=== PATIENT | female | born 1950 | race Caucasian/White ===

== ENCOUNTER 2023-02-09 09:58 | Outpatient (OUT) | payer MEDICARE, OTHER, SELFPAY ==
--- NOTE | 2023-02-09 10:11 | MM_ITS ---
Patient: VERONICA COBB Exam Date: 02/09/2023 : 1950 Gender:F Ordering : DR MIRELLA YOUNGER M.D. Admission #: [id number] Family : Order #: [id number] CLICK HERE TO VIEW EXAM RADIOLOGY REPORT PROCEDURE: MM TOMOSYNTHESIS SCREENING BI COMPARISON: MG MAMM SCREEN 3D DARRYL CAD, 02/07/2022. MG MAMM SCREEN 3D DARRYL CAD, 02/04/2021. MG MAMM SCREEN DARRYL W CAD, 02/02/2020. MG MAMM DARRYL SCRN W CAD DIG, 04/20/2014. INDICATIONS: Z12.31 Calculator Name NCI Breast Cancer Risk Assessment Tool 5 Year Breast Cancer Risk 1.40% Lifetime Breast Cancer Risk 3.10% Personal Breast Cancer No Personal Ovarian Cancer No Treatments None Family Cancers Sister with uterine cancer at age 28. LOCATION: [facility] BREAST COMPOSITION: Heterogeneously dense,which may obscure small masses. FINDINGS: DIAGNOSTIC CATEGORY 1--NEGATIVE. RIGHT BREAST: No significant suspicious finding. No significant change has occurred. LEFT BREAST: No significant suspicious finding. No significant change has occurred. RECOMMENDATIONS: ROUTINE MAMMOGRAM AND CLINICAL EVALUATION IN 12 MONTHS. PLEASE NOTE: A NORMAL MAMMOGRAM DOES NOT EXCLUDE THE POSSIBILITY OF BREAST CANCER. A CLINICALLY SUSPICIOUS PALPABLE LUMP SHOULD BE BIOPSIED. Dictated by: Jerry Bustamante M.D. on 02/09/2023 at 14:40 Approved by: Jerry Bustamante M.D. on 02/09/2023 at 14:43
== END 2023-02-09 09:59 | disposition home or self-care (01) ==
LOC: MAMMO 10:05
PROVIDERS: PCP Family Medicine; Visit Provider Family Medicine
DX: Z12.31 Encounter for screening mammogram for malignant neoplasm of breast (principal); Z80.8 Family history of malignant neoplasm of other organs or systems
CPT/HCPCS: 77063; 77067

== ENCOUNTER 2024-02-12 10:16 | Outpatient (OUT) | payer MEDICARE, OTHER, SELFPAY ==
--- NOTE | 2024-02-12 10:24 | MM_ITS ---
Patient Name: VERONICA COBB MR#: [id number] : 1950 Exam Date: 02/12/2024 Ordering Doctor: DR MIRELLA YOUNGER M.D. RADIOLOGY REPORT PROCEDURE: MM TOMOSYNTHESIS SCREENING BI COMPARISON: MM TOMOSYNTHESIS SCREENING BI, 02/09/2023. MG MAMM SCREEN 3D DARRYL CAD, 02/07/2022. MG MAMM SCREEN 3D DARRYL CAD, 02/04/2021. MG MAMM DARRYL SCRN W CAD DIG, 04/20/2014. INDICATIONS: Screening Calculator Name NCI Breast Cancer Risk Assessment Tool 5 Year Breast Cancer Risk 1.40% Lifetime Breast Cancer Risk 2.90% Personal Breast Cancer No Personal Ovarian Cancer No Treatments None Family Cancers Sister with uterine cancer at age 28. LOCATION: [facility] BREAST COMPOSITION: The breasts are heterogeneously dense,which may obscure small masses. FINDINGS: DIAGNOSTIC CATEGORY 1--NEGATIVE. RIGHT BREAST: No significant suspicious finding. No significant change has occurred. LEFT BREAST: No significant suspicious finding. No significant change has occurred. RECOMMENDATIONS: ROUTINE MAMMOGRAM AND CLINICAL EVALUATION IN 12 MONTHS. PLEASE NOTE: A NORMAL MAMMOGRAM DOES NOT EXCLUDE THE POSSIBILITY OF BREAST CANCER. A CLINICALLY SUSPICIOUS PALPABLE LUMP SHOULD BE BIOPSIED. Dictated by: Jerry Bustamante M.D. on 02/12/2024 at 16:06 Approved by: Jerry Bustamante M.D. on 02/12/2024 at 16:08
== END 2024-02-12 10:17 | disposition home or self-care (01) ==
LOC: MAMMO 10:16
PROVIDERS: PCP Family Medicine; Visit Provider Family Medicine
DX: Z12.31 Encounter for screening mammogram for malignant neoplasm of breast (principal); Z80.8 Family history of malignant neoplasm of other organs or systems
CPT/HCPCS: 77063; 77067

== ENCOUNTER 2024-04-06 12:42 | Outpatient (OUT) | payer MEDICARE, OTHER, SELFPAY ==
--- OUTSIDE RECORDS SUMMARY | 2024-04-06 12:52 | XMS_ITS | CCD ---
Author Organization [facility] Care Team Providers Care Exhauster Name Role Phone TYRA, DR AIDAN Hoyos Admitting Unavailabl e GRILLIS, DR AIDAN Hoyos Attending Unavailabl e AREN, DR VU Primary Care Unavailable GRILLIVivina, DR AIDAN Hoyos Consulting Unavailabl e GRILLIS, DR AIDNA Hoyos Admitting Unavailabl e GRILLIS, DR AIDAN Hoyos Attending Unavailabl e AREN, DR VU Primary Care Unavailable GRILLIS, DR AIDAN Hoyos Consulting Unavailabl e MORGOVivian, KARAN Consulting Unavailable NED CAMPA Consulting Unavailable AREN, DR VU Admitting Unavailable AREN, DR VU Attending Unavailable AREN, DR VU Primary Care Unavailable AREN, DR VU Consulting Unavailable WEST, DR MARCELLA Lino Consulting Unavailable AREN, DR VU Primary Care Unavailable NADERER, DR CORRY Delvalle Admitting Unavailable NADERER, DR CORRY Delvalle Attending Unavailable WEST, DR MARCELLA Lino Consulting Unavailable NADERER, DR CORRY Delvalle Consulting Unavailable HAY, DR MONROE Consulting Unavailable Luba Younger MD Unavailable Luba Younger MD Primary Care Provider RASHI LEE Attending Unavailable NELSY ESPITIA Attending Unavailable ARENLUBA Delvalle Attending Unavailable Allergies Allergy Classification Reported Allergen(s) Allergy Type Date of Onset Reaction(s) Facility (1 source) Penicillin Drug Allergy [facility] Repository (2 sources) Penicillin G Drug Allergy 11-22-2022 Unknown [facility] Healthcare (2 sources) Penicillin G sodium Allergy to substance 11-22-2022 Unknown [facility] Healthcare Medications Current Medications Medication Drug Class(es) Dates Sig (Normalized) Sig (Original) cetirizine hydrochloride 10 mg oral tablet (2 sources) Histamine-1 Receptor Antagonist Start: 03-09-2024 take 1 tablet by mouth once daily cetirizine (ZyrTEC) 10 MG tablet Indications: Seasonal allergic rhinitis, unspecified trigger Take 1 tablet (10 mg) by mouth Daily 100 tablet 03/09/2024 Active Start: 02-22-2024 take 1 tablet by zulay th at bedtime cetirizine (ZyrTEC ALLERGY) 10 MG tablet Indications: Seasonal allergic rhinitis, unspecified trigger Take 1 tablet (10 mg) by mouth at bedtime 30 tablet 02/22/2024 Active losartan potassium 50 mg oral tablet (2 sources) Angiotensin 2 Receptor Mike Start: 03-09-2024 take 1 tablet by mouth once daily losartan (Cozaar) 50 MG tablet Indications: Essential hypertension (CMS/HCC) Take 1 tablet (50 mg) by mouth Daily 100 tablet 03/09/2024 Active Start: 02-22-2024 take 1 tablet by zulay th once daily losartan (Cozaar) 50 MG tablet Indications: Essential hypertension (CMS/HCC) Take 1 tablet (50 mg) by mouth Daily 30 tablet 02/22/2024 Active metoprolol tartrate 25 mg oral tablet (3 sources) beta-Adrenergic Mike Start: 03-09-2024 metopr olol tartrate (Lopressor) 25 MG tablet Indications: Essential hypertension (CMS/HCC) TAKE ONE-HALF (1/2) TABLET TWICE A DAY WITH FOOD 90 tablet 3 03/09/2024 Active Start: 03-09-2024 End: 03-09-2024 take 1 tablet by mouth once daily metoprolol tartrate (Lopressor) 25 MG tablet Indications: Essential hypertension (CMS/HCC) Take 1 tablet (25 mg) by mouth Daily 100 tablet 03/09/2024 03/09/2024 Discontinued Start: 02-22-2024 metoprolol tar trate (Lopressor) 25 MG tablet Indications: Essential hypertension (CMS/HCC) TAKE ONE-HALF (1/2) TABLET TWICE A DAY WITH FOOD 30 tablet 02/22/2024 Active Problems Active Problems Problem Classification Problem Date Documented Da te Episodic/Chronic Cardiac dysrhythmias (4 sources) Irregular heart beat; Translations: [Cardiac arrhythmia, unspecified] Onset: 11-22-2022 11-22-2022 Chronic Cataract (2 sources) Cataract; Translations: [Unspecified cataract] Onset: 11-22-2022 11-22-2022 Chronic Chronic obstructive pulmonary disease and bronchiectasis (2 sources) Chronic obstructive lung disease; Translations: [Chronic obstructive pulmonary disease, unspecified] Onset: 11-22-2022 11-22-2022 Chronic Disorders of lipid metabolism (2 sources) Hyperlipidemia; Translations: [Hyperlipidemia, unspecified] Onset: 11-22-2022 11-22-2022 Chronic Diverticulosis and diverticulitis (4 sources) Diverticulosis of large intestine without perforation or abscess without bleeding; Translations: [Diverticulosis of large intestine without perforation or abscess with bleeding] Onset: 01-01-2022 11-22-2022 Chronic Essential hypertension (4 sources) Essential (primary) hypertension; Translations: [Benign essential hypertension] Onset: 01-01-2022 03-16-2023 Chronic Gastrointestinal hemorrhage (7 sources) Hemorrhage of anus and rectum; Translations: [Gastrointestinal hemorrhage, unspecified] Onset: 12-26-2021 Episodic Noninfectious gastroenteritis (1 source) Noninfective gastroenteritis and colitis, unspecified; Translations: [NONINFECTIVE GE AND COLITIS UNS] Onset: 01-01-2022 Episodic Other and unspecified benign neoplasm (1 source) Polyp of colon; Translations: [POLYP OF COLON] Onset: 02-26-2022 Episodic Other gastrointestinal disorders (1 source) Diarrhea, unspecified; Translations: [DIARRHEA UNSPECIFIED] Onset: 01-01-2022 Episodic Other nutritional; endocrine; and metabolic disorders (1 source) Obesity, unspecified; Translations: [OBESITY UNSPECIFIED] Onset: 02-26-2022 Chronic Other nutritional; endocrine; and metabolic disorders (1 source) Body mass index (BMI) 29.0-29.9, adult; Translations: [BODY MASS INDEX BMI 29.0-29.9 ADULT] Onset: 02-26-2022 Episodic Other screening for suspected conditions (not mental disorders or infectious disease) (4 sources) Encounter for screening mammogram for malignant neoplasm of breast; Translations: [ENC SCR MAMMO MALIG NEOPLASM BREAST] Onset: 02-07-2022 Episodic Other upper respiratory disease (2 sources) Seasonal allergic rhinitis; Translations: [Other seasonal allergic rhinitis] Onset: 11-22-2022 11-22-2022 Chronic Residual codes; unclassified (1 source) Family history of malignant neoplasm of other genital organs; Translations: [FAM HX MALIG NEOPLSM OTH GENIT ORGN] Onset: 02-11-2022 Episodic Screening and history of mental health and substance abuse codes (1 source) Personal history of nicotine dependence; Translations: [PERSONAL HISTORY OF NICOTINE DEPEND] Onset: 02-26-2022 Episodic Unclassified (1 source) CONTACT W/AND (SUSP) EXPOS COVID-19; Translations: [CONTACT W/AND (SUSP) EXPOS COVID-19] Onset: 02-19-2022 Urinary tract infections (1 source) Urinary tract infection, site not specified; Translations: [UTI SITE NOT SPECIFIED] Onset: 01-01-2022 Episodic Past or Other Problems Problem Classification Problem Date Documented Da te Episodic/Chronic Diabetes mellitus without complication (2 sources) Impaired glucose tolerance; Translations: [Impaired glucose tolerance (oral)] Onset: 11-22-2022 11-22-2022 Episodic Other bone disease and musculoskeletal deformities (2 sources) Osteopenia; Translations: [Other specified disorders of bone density and structure, unspecified site] Onset: 11-22-2022 11-22-2022 Episodic Other connective tissue disease (2 sources) Muscle pain; Translations: [Myalgia, unspecified site] Onset: 11-16-2023 11-16-2023 Episodic Other skin disorders (2 sources) Disorder of skin of upper limb; Translations: [Disorder of the skin and subcutaneous tissue, unspecified] Onset: 01-05-2023 01-05-2023 Episodic Other upper respiratory infections (2 sources) Upper respiratory infection; Translations: [Acute upper respiratory infection, unspecified] Onset: 02-23-2023 02-23-2023 Episodic Results Test Name Value Interpretation Reference Range Facility ALBUMIN, RANDOM URINE W/BRIANNA Song 03-30-2024 ALBUMIN, URINE <0.2 Normal See Note: [facility] Comment on above: Result Comment: Refe rence Range: Reference Range Not established Performed By: #### 6 399, 35722, 1517, 3840 #### [facility] [address], [address] [place] [address] Leasing Manager: Wilfrido Gibson MD ALBUMIN/CREATININE RATIO, RANDOM URINE NOTE Normal <30 [facility] Comment on above: Result Comment: NOTE : The urine albumin value is less than 0.2 mg/dL therefore we are unable to calculate excretion and/or creatinine ratio. The ADA defines abnormalities in albumin excretion as follows: Albuminuria Category Result (mg/g creatinine) Normal to Mildly increased <30 Moderately increased 30-299 Severely increased > OR = 300 The ADA recommends that at least two of three specimens collected within a 3-6 month period be abnormal before considering a patient to be within a diagnostic category. Performed By: #### 6 399, 13722, 65, 7600 #### [facility] [place] [address] Leasing Manager: Wilfrido Gibson MD Creatinine (U) [Mass/Vol] 10 mg/dL Low 20-275 [facility] Comment on above: Performed By: #### 6 399, 34254, 65, 7600 #### [facility] [place] [address] Leasing Manager: Wilfrido Gibson MD CBC (INCLUDES DIFF/PLT)on Basophils (Bld) [#/Vol] 0.047 10*3/uL Normal 0-200 [facility] Comment on above: Performed By: #### 6 399, 26117, 65, 7600 #### [facility] [place] [address] Leasing Manager: Wilfrido Gibson MD Basophils/100 WBC (Bld) 0.5 % Normal [facility] Comment on above: Performed By: #### 6 399, 32297, 65, 7600 #### [facility] [place] [address] Leasing Manager: Wilfrido Gibson MD Eosinophils (Bld) [#/Vol] 0.075 10*3/uL Normal 15-500 [facility] Comment on above: Performed By: #### 6 399, 06072, 6517, 7600 #### [facility] [place] [address] Leasing Manager: Wilfrido Gibson MD Eosinophils/100 WBC (Bld) 0.8 % Normal [facility] Comment on above: Performed By: #### 6 399, 16234, 65, 7600 #### [facility] of [place] [address] Leasing Manager: Wilfrido Gibson MD Erythrocyte distribution width (RBC) [Ratio] 11.7 % Normal 11.0-15.0 [facility] Comment on above: Performed By: #### 6 399, 46348, 6517, 7600 #### [facility] of [place] [address] Leasing Manager: Wilfrido Gibson MD Hematocrit (Bld) [Volume fraction] 44.4 % Normal 35.0-45.0 [facility] Comment on above: Performed By: #### 6 399, 79925, 6517, 7600 #### [facility] of [place] [address] Leasing Manager: Wilfrido Gibson MD Hemoglobin (Bld) [Mass/Vol] 15.1 g/dL Normal 11.7-15.5 [facility] Comment on above: Performed By: #### 6 399, 55120, 65, 7600 #### [facility] of [place] [address] Leasing Manager: Wilfrido Gibson MD Lymphocytes (Bld) [#/Vol] 3.187 10*3/uL Normal 850-3900 [facility] Comment on above: Performed By: #### 6 399, 35060, 6517, 7600 #### [facility] of [place] [address] Leasing Manager: Wilfrido Gibson MD Lymphocytes/100 WBC (Bld) 33.9 % Normal [facility] Comment on above: Performed By: #### 6 399, 77088, 6517, 7600 #### [facility] of [place] [address] Leasing Manager: Wilfrido Gibson MD MCH (RBC) [Entitic mass] 31.5 pg Normal 27.0-33.0 [facility] Comment on above: Performed By: #### 6 399, 47467, 6517, 7600 #### [facility] of [address], [address] [place] [address] Leasing Manager: Wilfrido Gibson MD MCHC (RBC) [Mass/Vol] 34.0 g/dL Normal 32.0-36.0 [facility] Comment on above: Result Comment: For adults, a slight decrease in the calculated MCHC value (in the range of 30 to 32 g/dL) is most likely not clinically significant; however, it should be interpreted with caution in correlation with other red cell parameters and the patient's clinical condition. Performed By: #### 6 399, , 65, 7600 #### [facility] [place] [address] Leasing Manager: Wilfrido Gibson MD MCV (RBC) [Entitic vol] 92.5 fL Normal 80.0-100.0 [facility] Comment on above: Performed By: #### 6 399, , 6516, 7600 #### [facility] [place] [address] Leasing Manager: Wilfrido Gibson MD Monocytes (Bld) [#/Vol] 0.592 10*3/uL Normal 200-950 [facility] Comment on above: Performed By: #### 6 399, , 65, 7600 #### [facility] of [place] [address] Leasing Manager: Wilfrido Gibson MD Monocytes/100 WBC (Bld) 6.3 % Normal [facility] Comment on above: Performed By: #### 6 399, , 65, 7600 #### [facility] of [place] [address] Leasing Manager: Wilfrido Gibson MD Neutrophils (Bld) [#/Vol] 5.499 10*3/uL Normal 5756-0698 [facility] Comment on above: Performed By: #### 6 399, , 65, 7600 #### [facility] [place] [address] Leasing Manager: Wilfrido Gibson MD Neutrophils/100 WBC (Bld) 58.5 % Normal [facility] Comment on above: Performed By: #### 6 399, 69163, 6517, 7600 #### [facility] of [place] [address] Leasing Manager: Wilfrido Gibson MD Platelet mean volume (Bld) [Entitic vol] 9.9 fL Normal 7.5-12.5 [facility] Comment on above: Performed By: #### 6 399, 53350, 6517, 7600 #### [facility] of [address], [address] [place] [address] Leasing Manager: Wilfrido Gibson MD Platelets (Bld) [#/Vol] 256 10*3/uL Normal 140-400 [facility] Comment on above: Performed By: #### 6 399, 03622, 6517, 7600 #### [facility] of [place] [address] Leasing Manager: Wilfrido Gibson MD RBC (Bld) [#/Vol] 4.80 10*6/uL Normal 3.80-5.10 [facility] Comment on above: Performed By: #### 6 399, 47223, 6517, 7600 #### [facility] of [place] [address] Leasing Manager: Wilfrido Gibson MD WBC (Bld) [#/Vol] 9.4 10*3/uL Normal 3.8-10.8 [facility] Comment on above: Performed By: #### 6 399, 21754, 6517, 7600 #### [facility] of [place] [address] Leasing Manager: Wilfrido Gibson MD [facility] 03-30-2024 Albumin [Mass/Vol] 4.4 g/dL Normal 3.6-5.1 [facility] Comment on above: Performed By: #### 6 399, 75469, 6517, 7600 #### [facility] of [place] [address] Leasing Manager: Wilfrido Gibson MD Albumin/Globulin [Mass ratio] 1.8 {ratio} Normal 1.0-2.5 [facility] Comment on above: Performed By: #### 6 399, 15739, 65, 7600 #### [facility] of [address], [address] [place] [address] Leasing Manager: Wilfrido Gibson MD ALP [Catalytic activity/Vol] 59 U/L Normal 37-153 [facility] Comment on above: Performed By: #### 6 399, 34451, 65, 7600 #### [facility] of [address], [address] [place] [address] Leasing Manager: Wilfrido Gibson MD ALT [Catalytic activity/Vol] 20 U/L Normal 6-29 [facility] Comment on above: Performed By: #### 6 399, 16063, 65, 7600 #### [facility] of [address], [address] [place] [address] Leasing Manager: Wilfrido Gibson MD AST [Catalytic activity/Vol] 32 U/L Normal 10-35 [facility] Comment on above: Performed By: #### 6 399, 15420, 65, 7600 #### [facility] of [place] [address] Leasing Manager: Wilfrido Gibson MD Bilirubin [Mass/Vol] 0.7 mg/dL Normal 0.2-1.2 [facility] Comment on above: Performed By: #### 6 399, 79758, 65, 7600 #### [facility] of [place] [address] Leasing Manager: Wilfrido Gibson MD BUN/CREATININE RATIO SEE NOTE: Normal 6-22 [facility] Comment on above: Result Comment: Not Reported: BUN and Creatinine are within reference range. Performed By: #### 6 399, 25532, 6517, 7600 #### [facility] of [address], [address] [place] [address] Leasing Manager: Wilfrido Gibson MD Calcium [Mass/Vol] 9.3 mg/dL Normal 8.6-10.4 [facility] Comment on above: Performed By: #### 6 399, 76903, 6517, 7600 #### [facility] of [place] [address] Leasing Manager: Wilfrido Gibson MD Chloride [Moles/Vol] 100 mmol/L Normal 98-110 [facility] Comment on above: Performed By: #### 6 399, 59450, 65, 7600 #### [facility] of [address], [address] [place] [address] Leasing Manager: Wilfrido Gibson MD CO2 [Moles/Vol] 26 mmol/L Normal 20-32 [facility] Comment on above: Performed By: #### 6 399, 27192, 65, 7600 #### [facility] of [address], [address] [place] [address] Leasing Manager: Wilfrido Gibson MD Creatinine [Mass/Vol] 0.76 mg/dL Normal 0.60-1.00 [facility] Comment on above: Performed By: #### 6 399, 47308, 65, 7600 #### [facility] of [place] [address] Leasing Manager: Wilfrido Gibson MD GFR/1.73 sq M.predicted among non-blacks MDRD (S/P/Bld) [Vol rate/Area] 81 mL/min/{1.73_m2} Normal > OR = 60 [facility] Comment on above: Performed By: #### 6 399, 40229, 65, 7600 #### [facility] of [address], [address] [place] [address] Leasing Manager: Wilfrido Gibson MD Globulin (S) [Mass/Vol] 2.5 g/dL Normal 1.9-3.7 [facility] Comment on above: Performed By: #### 6 399, 44245, 65, 7600 #### [facility] of [place] [address] Leasing Manager: Wilfrido Gibson MD Glucose [Mass/Vol] 114 mg/dL High 65-99 [facility] Comment on above: Result Comment: Fasting reference interval For someone without known diabetes, a glucose value between 100 and 125 mg/dL is consistent with prediabetes and should be confirmed with a follow-up test. Performed By: #### 6 399, 96571, 6517, 7600 #### [facility] [address], [address] [place] [address] Leasing Manager: Wilfrido Gibson MD Potassium [Moles/Vol] 5.0 mmol/L Normal 3.5-5.3 [facility] Comment on above: Performed By: #### 6 399, 86281, 6517, 7600 #### [facility] [place] [address] Leasing Manager: Wilfrido Gbison MD Protein [Mass/Vol] 6.9 g/dL Normal 6.1-8.1 [facility] Comment on above: Performed By: #### 6 399, 21734, 6517, 7600 #### [facility] [place] [address] Leasing Manager: Wilfrido Gibson MD Sodium [Moles/Vol] 135 mmol/L Normal 135-146 [facility] Comment on above: Performed By: #### 6 399, 01401, 6517, 7600 #### [facility] [place] [address] Leasing Manager: Wilfrido Gibson MD Urea nitrogen [Mass/Vol] 12 mg/dL Normal 7-25 [facility] Comment on above: Performed By: #### 6 399, 48139, 6517, 7600 #### [facility] of [place] [address] Leasing Manager: Wilfrido Gibson MD LIPID PANEL, [facility] 03-18 Cholesterol [Mass/Vol] 254 mg/dL High <200 [facility] Comment on above: Order Comment: DIFFI CULT DRAW- 03/29/1924 Performed By: #### 6 399, 81511, 6517, 7600 #### [facility] [address], [address] [place] [address] Leasing Manager: Wilfrido Gibson MD Cholesterol in HDL [Mass/Vol] 53 mg/dL Normal > OR = 50 [facility] Comment on above: Order Comment: DIFFI CULT DRAW- 03/29/1924 Performed By: #### 6 399, 53736, 6517, 7600 #### [facility] [address], [address] [place] [address] Leasing Manager: Wilfrido Gibson MD Cholesterol in LDL [Mass/Vol] 164 mg/dL High [facility] Comment on above: Order Comment: DIFFI CULT DRAW- 03/29/1924 Result Comment: Refe rence range: <100 Desirable range <100 mg/dL for primary prevention; <70 mg/dL for patients with CHD or diabetic patients with > or = 2 CHD risk factors. LDL-C is now calculated using the Denise calculation, which is a validated novel method providing better accuracy than the Friedewald equation in the estimation of LDL-C. Dexter MOORE et al. DONNIE. 2013;310(19): 7389-6549 (http://education.GeoG[employer].Karma Gaming/faq/AVQ355) Performed By: #### 6 399, 85937, 0917, 7600 #### [facility] [address], [address] [place] [address] Leasing Manager: Wilfrido Gibson MD Cholesterol.total/C holesterol in HDL [Mass ratio] 4.8 {ratio} Normal <5.0 [facility] Comment on above: Order Comment: DIFFI CULT DRAW- 03/29/1924 Performed By: #### 6 399, 58407, 6517, 7600 #### [facility] [address], [address] [place] [address] Leasing Manager: Wilfrido Gibson MD NON HDL CHOLESTEROL 201 mg/dL (calc) High <130 [facility] Comment on above: Order Comment: DIFFI CULT DRAW- 03/29/1924 Result Comment: For patients with diabetes plus 1 major ASCVD risk factor, treating to a non-HDL-C goal of <100 mg/dL (LDL-C of <70 mg/dL) is considered a therapeutic option. Performed By: #### 6 399, 52756, 6517, 7600 #### [facility] [address], [address] [place], [place] [id number] Leasing Manager: Wilfrido Gibson MD Triglyceride [Mass/Vol] 210 mg/dL High <150 [facility] Comment on above: Order Comment: DIFFI CULT DRAW- 03/29/1924 Result Comment: If a non-fasting specimen was collected, consider repeat triglyceride testing on a fasting specimen if clinically indicated. Monet et al. J. of Clin. Lipidol. 2015;9:129-169. Performed By: #### 6 399, 19071, 9117, 7430 #### [facility] [address], [address] [place] [address] Leasing Manager: Wilfrido Gibson MD Covid-19 PCR (CVDTB)on SARS-CoV-2 (COVID-19) RNA NORMA+probe Ql (Unsp spec) Not detected Normal NOT DETECTED [facility] Comment on above: Result Comment: This test is not yet approved or cleared by the [place] FDA. When there are no FDA-approved or cleared tests available, and other criteria are met, FDA can make tests available under an emergency access mechanism called an Emergency Use Authorization (EUA). The EUA for this test is supported by the [place] of Health and Human Service's (HHS's) declaration that circumstances exist to justify the emergency use of in vitro diagnostics for the detection and/or diagnosis of the virus that causes COVID-19. This EUA will remain in effect (meaning this test can be used) for the duration of the COVID-19 declaration justifying emergency of IVDs, unless it is terminated or revoked by FDA (after which the test may no longer be used). When diagnostic testing is negative, the possibility of a false negative should be considered in the context of a patient's recent exposures and the presence of clinical signs and symptoms consistent with SARS-CoV-2. Performed By: #### C VDTB #### [facility] [address] [place] [address] Dr. Norma Foss MG MAMM SCREEN 3D DARRYL CADon 02-07-2022 MG MAMM SCREEN 3D DARRYL CAD Patient: VERONICA SALINAS Exam Date: 02/07/2022 : 1950 Gender:F Ordering : DR LUBA YOUNGER M.D. Admission #: [id number] Family : Order #: [id number] CLICK HERE TO VIEW EXAM RADIOLOGY REPORT PROCEDURE: MAMMOGRAM SCREENING 3D BILATERAL CAD COMPARISON: MG MAMM SCREEN DARRYL W CAD, 2020. MG MAMM SCREEN 3D DARRYL CAD, 02/04/2021. INDICATIONS: Screening mammography Calculator Name NCI Breast Cancer Risk Assessment Tool 5 Year Breast Cancer Risk 1.40% Lifetime Breast Cancer Risk 3.30% Personal Breast Cancer No Personal Ovarian Cancer No Treatments None Family Cancers Sister with uterine cancer at age 28. LOCATION: [facility] BREAST COMPOSITION: Heterogeneously dense,which may obscure small masses. FINDINGS: DIAGNOSTIC CATEGORY 1--NEGATIVE. NO CHANGE FROM COMPARISON ASSESSMENT. Scattered benign-appearing calcifications are present. Scattered benign-appearing lymph nodes are present. RIGHT BREAST: No significant suspicious finding. LEFT BREAST: No significant suspicious finding. RECOMMENDATIONS: ROUTINE MAMMOGRAM AND CLINICAL EVALUATION IN 12 MONTHS. PLEASE NOTE: A NORMAL MAMMOGRAM DOES NOT EXCLUDE THE POSSIBILITY OF BREAST CANCER. A CLINICALLY SUSPICIOUS PALPABLE LUMP SHOULD BE BIOPSIED. Dictated by: Marcella Stone MD on 02/07/2022 at 13:12 Approved by: Marcella Stone MD on 02/07/2022 at 13:13 Normal [facility] Physician Referralon 022 Physician Referral [id number]. [id number]:127 Normal [facility] ANTIBODY ID PANELon 01-01-20 22 ANTIBODY ID PANEL Antibody ID Negative Blood Bank Notes No antibodies found at [facility] Normal [facility] Comment on above: Performed By: #### P TT, PT #### [facility] [address] [place] [address] Dr. Norma Foss CBC AUTO DIFFon 12-27-2021 BASO # 0.0 103/ul Normal 0.0-0.1 [facility] Comment on above: Performed By: #### C BC #### [facility] [address] [place] [address] Dr. Norma Foss Basophils/100 WBC (Bld) 0.4 % Normal 0.2-2.0 [facility] Comment on above: Performed By: #### C BC #### [facility] [address] [place] [address] Dr. Norma Foss EO # 0.1 103/ul Normal 0.0-0.7 [facility] Comment on above: Performed By: #### C BC #### [facility] [address] [place] [address] Dr. Norma Foss Eosinophils/100 WBC (Bld) 1.1 % Normal 0.9-7.0 [facility] Comment on above: Performed By: #### C BC #### [facility] [address] [place] [address] Dr. Norma Foss Erythrocyte distribution width (RBC) [Ratio] 12.5 % Normal 11.0-15.0 [facility] Comment on above: Performed By: #### C BC #### [facility] [address] [place] [address] Dr. Norma Foss Hematocrit (Bld) [Volume fraction] 36.2 % Normal 36.0-48.0 [facility] Comment on above: Performed By: #### C BC #### [facility] [address] [place] [address] Dr. Norma Foss Hemoglobin (Bld) [Mass/Vol] 11.4 g/dL Critically low 12.0-16.0 [facility] Comment on above: Performed By: #### C BC #### [facility] [address] [place] [address] Dr. Norma Foss IG # 0.02 10e3/ul Normal 0.00-0.03 [facility] Comment on above: Performed By: #### C BC #### [facility] [address] [place] [address] Dr. Norma Foss IG % 0.2 % Normal 0.0-0.5 [facility] Comment on above: Performed By: #### C BC #### [facility] [address] [place] [address] Dr. Norma Foss LYMPH # 3.3 103/ul Normal 1.2-3.8 [facility] Comment on above: Performed By: #### C BC #### [facility] [address] [place] [address] Dr. Norma Foss Lymphocytes/100 WBC (Bld) 30.3 % Normal 20.5-60.0 [facility] Comment on above: Performed By: #### C BC #### [facility] [address] [place] [address] Dr. Norma Foss MANUAL DIFF REQ NO Normal [facility] Comment on above: Performed By: #### C BC #### [facility] [address] [place] [address] Dr. Norma Foss MCH (RBC) [Entitic mass] 30.8 pg Normal 26.7-34.0 [facility] Comment on above: Performed By: #### C BC #### [facility] [address] [place] [address] Dr. Norma Foss MCHC (RBC) [Mass/Vol] 31.5 g/dL Normal 29.9-35.2 [facility] Comment on above: Performed By: #### C BC #### [facility] [address] [place] [address] Dr. Norma Foss MCV (RBC) [Entitic vol] 97.8 fL Normal 81.0-99.0 [facility] Comment on above: Performed By: #### C BC #### [facility] [address] [place] [address] Dr. Norma Foss MONO # 0.7 103/ul Normal 0.3-0.8 [facility] Comment on above: Performed By: #### C BC #### [facility] [address] [place] [address] Dr. Norma Foss Monocytes/100 WBC (Bld) 6.6 % Normal 1.7-12.0 [facility] Comment on above: Performed By: #### C BC #### [facility] [address] [place] [address] Dr. Norma Foss NEUT # 6.7 103/ul Critically high 1.4-6.5 [facility] Comment on above: Performed By: #### C BC #### [facility] [address] [place] [address] Dr. Norma Foss Neutrophils/100 WBC (Bld) 61.4 % Normal 43.0-75.0 [facility] Comment on above: Performed By: #### C BC #### [facility] [address] [place] [address] Dr. Norma Foss Platelet mean volume (Bld) [Entitic vol] 9.4 fL Critically low 9.5-13.5 [facility] Comment on above: Performed By: #### C BC #### [facility] [address] [place] [address] Dr. Norma Foss PLT 223 103/ul Normal 150-450 [facility] Comment on above: Performed By: #### C BC #### [facility] [address] [place] [address] Dr. Norma Foss RBC 3.70 106/ul Critically low 4.20-5.40 [facility] Comment on above: Performed By: #### C BC #### [facility] [address] [place] [address] Dr. Norma Foss WBC 10.9 103/ul Normal 4.0-11.0 [facility] Comment on above: Performed By: #### C BC #### [facility] [address] [place] [address] Dr. Norma Foss PROF 14(COMP METB)on 022 Albumin [Mass/Vol] 2.9 g/dL Critically low 3.4-5.0 [facility] Comment on above: Performed By: #### C MP #### [facility] [address] [place] [address] Dr. Norma Foss Albumin/Globulin [Mass ratio] 1.1 {ratio} Normal [facility] Comment on above: Performed By: #### C MP #### [facility] [address] [place] [address] Dr. Norma Foss ALP [Catalytic activity/Vol] 63 U/L Normal 46-116 [facility] Comment on above: Performed By: #### C MP #### [facility] [address] [place] [address] Dr. Norma Foss ALT [Catalytic activity/Vol] 17 U/L Normal 14-59 [facility] Comment on above: Performed By: #### C MP #### [facility] [address] [place] [address] Dr. Norma Foss Anion gap [Moles/Vol] 10.9 mmol/L Normal [facility] Comment on above: Performed By: #### C MP #### [facility] [address] [place] [address] Dr. Norma Foss AST [Catalytic activity/Vol] 17 U/L Normal 15-37 [facility] Comment on above: Performed By: #### C MP #### [facility] [address] [place] [address] Dr. Norma Foss Bilirubin [Mass/Vol] 0.3 mg/dL Normal 0.2-1.0 [facility] Comment on above: Performed By: #### C MP #### [facility] [address] [place] [address] Dr. Norma Foss Calcium [Mass/Vol] 8.4 mg/dL Critically low 8.5-10.1 [facility] Comment on above: Performed By: #### C MP #### [facility] [address] [place] [address] Dr. Norma Foss Chloride [Moles/Vol] 107 mmol/L Normal 98-107 [facility] Comment on above: Performed By: #### C MP #### [facility] [address] [place] [address] Dr. Norma Foss CO2 [Moles/Vol] 25.1 mmol/L Normal 21.0-32.0 [facility] Comment on above: Performed By: #### C MP #### [facility] [address] [place] [address] Dr. Norma Foss Creatinine [Mass/Vol] 0.85 mg/dL Normal 0.55-1.02 [facility] Comment on above: Performed By: #### C MP #### [facility] [address] [place] [address] [address] Norma Foss EGFR-AF [place] >60 Normal >=60 [facility] Comment on above: Performed By: #### C MP #### [facility] [address] [address] [address] Norma Foss EGFR-NON AF [place] >60 Normal >=60 [facility] Comment on above: Performed By: #### C MP #### [facility] [address] [address] [address] Norma Foss Globulin (S) [Mass/Vol] 2.7 g/dL Normal [facility] Comment on above: Performed By: #### C MP #### [facility] [address] [address] [address] Norma Foss Glucose [Mass/Vol] 138 mg/dL Critically high 74-106 [facility] Comment on above: Performed By: #### C MP #### [facility] [address] [address] [address] Norma Foss Potassium [Moles/Vol] 4.0 mmol/L Normal 3.5-5.1 [facility] Comment on above: Performed By: #### C MP #### [facility] [address] [address] [address] Norma Foss Protein [Mass/Vol] 5.6 g/dL Critically low 6.4-8.2 [facility] Comment on above: Performed By: #### C MP #### [facility] [address] [address] [address] Norma Foss Sodium [Moles/Vol] 139 mmol/L Normal 136-145 [facility] Comment on above: Performed By: #### C MP #### [facility] [address] [address] [address] Norma Foss Urea nitrogen [Mass/Vol] 8.0 mg/dL Normal 7.0-18.0 [facility] Comment on above: Performed By: #### C MP #### [facility] [address] [place] [address] Dr. Norma Foss Urea nitrogen/Creatinine [Mass ratio] 9.4 mg/mg Normal [facility] Comment on above: Performed By: #### C MP #### [facility] [address] [place] [address] Dr. Norma Foss CBC AUTO DIFFon 12-26-2021 BASO # 0.1 103/ul Normal 0.0-0.1 [facility] Comment on above: Performed By: #### P TT, PT #### [facility] [address] [place] [address] Dr. Norma Foss Basophils/100 WBC (Bld) 0.4 % Normal 0.2-2.0 [facility] Comment on above: Performed By: #### P TT, PT #### [facility] [address] [place] [address] Dr. Norma Foss EO # 0.0 103/ul Normal 0.0-0.7 [facility] Comment on above: Performed By: #### P TT, PT #### [facility] [address] [place] [address] Dr. Norma Foss Eosinophils/100 WBC (Bld) 0.2 % Critically low 0.9-7.0 [facility] Comment on above: Performed By: #### P TT, PT #### [facility] [address] [place] [address] Dr. Norma Foss Erythrocyte distribution width (RBC) [Ratio] 12.2 % Normal 11.0-15.0 [facility] Comment on above: Performed By: #### P TT, PT #### [facility] [address] [place] [address] Dr. Norma Foss Hematocrit (Bld) [Volume fraction] 41.5 % Normal 36.0-48.0 [facility] Comment on above: Performed By: #### P TT, PT #### [facility] [address] [place] [address] Dr. Norma Foss Hemoglobin (Bld) [Mass/Vol] 13.8 g/dL Normal 12.0-16.0 [facility] Comment on above: Performed By: #### P TT, PT #### [facility] [address] [address] [address] Norma Foss IG # 0.03 10e3/ul Normal 0.00-0.03 [facility] Comment on above: Performed By: #### P TT, PT #### [facility] [address] [address] [address] Norma Foss IG % 0.2 % Normal 0.0-0.5 [facility] Comment on above: Performed By: #### P TT, PT #### [facility] [address] [place] [address] Dr. Norma Foss LYMPH # 2.3 103/ul Normal 1.2-3.8 [facility] Comment on above: Performed By: #### P TT, PT #### [facility] [address] [place] [address] Dr. Norma Foss Lymphocytes/100 WBC (Bld) 17.4 % Critically low 20.5-60.0 [facility] Comment on above: Performed By: #### P TT, PT #### [facility] [address] [place] [address] Dr. Norma Foss MANUAL DIFF REQ NO Normal [facility] Comment on above: Performed By: #### P TT, PT #### [facility] [address] [address] [address] Norma Foss MCH (RBC) [Entitic mass] 30.6 pg Normal 26.7-34.0 [facility] Comment on above: Performed By: #### P TT, PT #### [facility] [address] [place] [address] Dr. Norma Foss MCHC (RBC) [Mass/Vol] 33.3 g/dL Normal 29.9-35.2 [facility] Comment on above: Performed By: #### P TT, PT #### [facility] [address] [place] [address] Dr. Norma Foss MCV (RBC) [Entitic vol] 92.0 fL Normal 81.0-99.0 [facility] Comment on above: Performed By: #### P TT, PT #### [facility] [address] [place] [address] Dr. Norma Foss MONO # 0.6 103/ul Normal 0.3-0.8 [facility] Comment on above: Performed By: #### P TT, PT #### [facility] [address] [place] [address] Dr. Norma Foss Monocytes/100 WBC (Bld) 4.8 % Normal 1.7-12.0 [facility] Comment on above: Performed By: #### P TT, PT #### [facility] [address] [place] [address] Dr. Norma Foss NEUT # 10.0 103/ul Critically high 1.4-6.5 [facility] Comment on above: Performed By: #### P TT, PT #### [facility] [address] [place] [address] Dr. Norma Foss Neutrophils/100 WBC (Bld) 77.0 % Critically high 43.0-75.0 [facility] Comment on above: Performed By: #### P TT, PT #### [facility] [address] [place] [address] Dr. Norma Foss Platelet mean volume (Bld) [Entitic vol] 9.3 fL Critically low 9.5-13.5 [facility] Comment on above: Performed By: #### P TT, PT #### [facility] [address] [place] [address] Dr. Norma Foss PLT 262 103/ul Normal 150-450 [facility] Comment on above: Performed By: #### P TT, PT #### [facility] [address] [place] [address] Dr. Norma Foss RBC 4.51 106/ul Normal 4.20-5.40 [facility] Comment on above: Performed By: #### P TT, PT #### [facility] [address] [place] [address] Dr. Norma Foss WBC 13.0 103/ul Critically high 4.0-11.0 [facility] Comment on above: Performed By: #### P TT, PT #### [facility] [address] [place], [place] [address] ABD/PELVIS WO CONon 12-26 CT ABD/PELVIS WO CON EXAMINATION: CT ABD/PELVIS WO CON, 12/26/2021 9:08 AM EDT HISTORY: Acute lower gastrointestinal hemorrhage , vomiting, diarrhea COMPARISON: None. TECHNIQUE: CT scan of the abdomen and pelvis was performed without IV contrast. CT dose reduction technique was used, including Automated Exposure Control. FINDINGS: LUNG BASES: Moderate peribronchial thickening. Mild to moderate emphysema. LIVER: No enlargement, atrophy, abnormal density, or significant focal lesion. BILIARY: No dilatation or calcification. PANCREAS: No lesion, fluid collection, ductal dilatation, or atrophy. SPLEEN: No enlargement or focal lesion. ADRENALS: No mass or enlargement. KIDNEYS: No mass, obstruction, or calcification. BOWEL/MESENTERY: Colonic diverticulosis. Wall thickening of the sigmoid colon possibly related to diverticular disease with no focal mass observed. Nonobstructive bowel gas pattern. No aortic aneurysm. Moderate diffuse atherosclerosis AORTA/VASCULAR: No aneurysm or dissection. RETROPERITONEUM: No mass or adenopathy. LYMPH NODES: No adenopathy. URINARY BLADDER: No visible focal wall thickening, lesion, or calculus. PELVIC ORGANS: No visible mass. Pelvic organs appropriate for patient age. ABDOMINAL WALL: No mass or hernia. 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 IMPRESSION: Moderate colonic diverticulosis without evidence of acute diverticulitis. Wall thickening of the mid sigmoid colon possibly inflammatory in nature, consider nonemergent direct visualization Electronically authenticated by: MARCELLA STONE Date: 2021-12-26 10:09 Normal [facility] CULTURE URINEon 12-26-2021 CULTURE URINE Culture Observations : LIGHT GROWTH OF MIXED GENITAL VALERY. NO POTENTIAL PATHOGENS SEEN. Normal [facility] Comment on above: Performed By: #### P TT, PT #### [facility] [address] [place], [place] [address] Dr. Norma Foss [facility]16 SARS-CoV-2 (COVID-19) RNA NORMA+probe Ql (Unsp spec) Not detected Normal NOT DETECTED [facility] Comment on above: Result Comment: When diagnostic testing is negative, the possibility of a false negative should be considered in the context of a patient's recent exposures and the presence of clinical signs and symptoms consistent with SARS-CoV-2. This test is not yet approved or cleared by the [place] FDA. When there are no FDA-approved or cleared tests available, and other criteria are met, FDA can make tests available under an emergency access mechanism called an Emergency Use Authorization (EUA). The EUA for this test is supported by the [place] of Health and Human Service's declaration that circumstances exist to justify the emergency use of in vitro diagnostics for the detection and/or diagnosis of the virus that causes COVID-19. This EUA will remain in effect for the duration of the COVID-19 declaration justifying emergency of IVDs, unless it is terminated or revoked by the FDA (after which the test may no longer be used). Performed By: #### P TT, PT #### [facility] [address] [place] [address] Dr. Norma Foss DIRECT COOMBSon 12-26-2021 DIRECT SHRAVAN Negative Normal The [facility] Comment on above: Performed By: #### P TT, PT #### [facility] [address] [place] [address] Dr. Norma Foss ER URINE PROFILEon 2 Bilirubin Ql (U) Negative Normal NEGATIVE [facility] Comment on above: Performed By: #### U MICRO, ERUR #### [facility] [address] [place] [address] Dr. Norma Foss Clarity (U) CLEAR Normal CLEAR [facility] Comment on above: Performed By: #### U MICRO, ERUR #### [facility] [address] [place] [address] Dr. Norma Foss Color (U) LT. YELLOW Normal YELLOW [facility] Comment on above: Performed By: #### U MICRO, ERUR #### [facility] [address] [place] [address] Dr. Norma Foss ERUAHD A micrscopic examination will be performed if indicated. Normal [facility] Comment on above: Performed By: #### U MICRO, ERUR #### [facility] [address] [address] [address] Norma Foss Glucose Ql (U) Negative Normal NEGATIVE [facility] Comment on above: Performed By: #### U MICRO, ERUR #### [facility] [address] [address] [address] Norma Foss Hemoglobin Ql (U) SMALL Abnormal NEGATIVE [facility] Comment on above: Performed By: #### U MICRO, ERUR #### [facility] [address] [address] [address] Norma Foss Ketones Ql (U) Negative Normal NEGATIVE [facility] Comment on above: Performed By: #### U MICRO, ERUR #### [facility] [address] [place] [address] Dr. Norma Foss LEUKOCYTES TRACE Abnormal NEGATIVE [facility] Comment on above: Performed By: #### U MICRO, ERUR #### [facility] [address] [address] [address] Norma Foss Nitrite Ql (U) Negative Normal NEGATIVE [facility] Comment on above: Performed By: #### U MICRO, ERUR #### [facility] [address] [address] [address] Norma Foss pH (U) 5.5 [pH] Normal 5-9 [facility] Comment on above: Performed By: #### U MICRO, ERUR #### [facility] [address] [address] [address] Norma Foss SPEC GRAVITY 1.025 Normal 1.005-<=1.025 The [facility] Comment on above: Performed By: #### U MICRO, ERUR #### [facility] [address] [address] [address] Norma Foss UA PROTEIN TRACE Normal NEGATIVE/ TRACE [facility] Comment on above: Performed By: #### U MICRO, ERUR #### [facility] [address] [address] [address] Norma Foss UR MICRO IND INDICATED Normal [facility] Comment on above: Performed By: #### U MICRO, ERUR #### [facility] [address] [place] [address] Dr. Norma Foss Urobilinogen Qn (U) 0.2 {Ivette'U}/dL Normal 0.2 - 1. 0 [facility] Comment on above: Performed By: #### U MICRO, ERUR #### [facility] [address] [place] [address] Dr. Norma Foss GI PANEL (PCR)on 12-26-2021 Adenovirus F 40/41 Not detected Normal NOT DETECTED [facility] Comment on above: Performed By: #### G IPANEL #### [facility] [address] [place] [address] Dr. Norma Foss Astrovirus Not detected Normal NOT DETECTED [facility] Comment on above: Performed By: #### G IPANEL #### [facility] [address] [place] [address] Dr. Norma Foss C. Diff toxin A/B Not detected Normal NOT DETECTED [facility] Comment on above: Performed By: #### G IPANEL #### [facility] [address] [place] [address] Dr. Norma Foss Campylobacter Not detected Normal NOT DETECTED [facility] Comment on above: Performed By: #### G IPANEL #### [facility] [address] [place] [address] Dr. Norma Foss Cryptosporidium Not detected Normal NOT DETECTED [facility] Comment on above: Performed By: #### G IPANEL #### [facility] [address] [place] [address] Dr. Norma Foss Cyclos. Cayetanensis Not detected Normal NOT DETECTED [facility] Comment on above: Performed By: #### G IPANEL #### [facility] [address] [place] [address] Dr. Norma Foss E. Coli O157 Not Applicable Normal Not Applicable [facility] Comment on above: Performed By: #### G IPANEL #### [facility] [address] [place] [address] Dr. Norma Foss E. histolytica Not detected Normal NOT DETECTED [facility] Comment on above: Performed By: #### G IPANEL #### [facility] [address] [address] [address] Norma Foss EAEC Not detected Normal NOT DETECTED [facility] Comment on above: Performed By: #### G IPANEL #### [facility] [address] [place] [address] Dr. Norma Foss EIEC Not detected Normal NOT DETECTED [facility] Comment on above: Performed By: #### G IPANEL #### [facility] [address] [address] [address] Norma Foss EPEC Not detected Normal NOT DETECTED [facility] Comment on above: Performed By: #### G IPANEL #### [facility] [address] [place] [address] Dr. Norma Foss ETEC Not detected Normal NOT DETECTED [facility] Comment on above: Performed By: #### G IPANEL #### [facility] [address] [place] [address] Dr. Norma Barajas Lamblia Not detected Normal NOT DETECTED [facility] Comment on above: Performed By: #### G IPANEL #### [facility] [address] [place] [address] Dr. Norma BRISCOE CONTROLS PASSED Normal [facility] Comment on above: Performed By: #### G IPANEL #### [facility] [address] [place] [address] Dr. Norma CRESPO [facility] HEADER GI PANEL BACTERIA Normal T [facility] Comment on above: Performed By: #### G IPANEL #### [facility] [address] [place] [address] Dr. Norma FREITAS ECOLI GI PANEL DIARRHEAGENIC E.COLI / SHIGELLA Normal [facility] Comment on above: Performed By: #### G IPANEL #### [facility] [address] [place] [address] Dr. Norma FREITAS INFO SEE BELOW Normal [facility] Comment on above: Result Comment: EAEC - Enteroaggregative E. Coli EPEC- Enteropathogenic E. Coli ETEC- Enterotoxigenic E. Coli lt/st STEC- Shigella-like toxin-producing E. Coli stx1/stx2 EIEC- Shigella/Enteroinvasive E. Coli Performed By: #### G IPANEL #### [facility] [address] [place] [address] Dr. Norma FREITAS PARASITES GI PANEL PARASITES Normal [facility] Comment on above: Performed By: #### G IPANEL #### [facility] [address] [place] [address] Dr. Norma FREITAS VIRUS GI PANEL VIRUSES Normal The [facility] Comment on above: Performed By: #### G IPANEL #### [facility] [address] [place] [address] Dr. Norma Foss Norovirus GI/GII Not detected Normal NOT DETECTED [facility] Comment on above: Performed By: #### G IPANEL #### [facility] [address] [place] [address] Dr. Norma Foss P. Shigelloides Not detected Normal NOT DETECTED [facility] Comment on above: Performed By: #### G IPANEL #### [facility] [address] [place] [address] Dr. Norma Foss Rotavirus A Not detected Normal NOT DETECTED The [facility] Comment on above: Performed By: #### G IPANEL #### [facility] [address] [place] [address] Dr. Norma Foss Salmonella Not detected Normal NOT DETECTED [facility] Comment on above: Performed By: #### G IPANEL #### [facility] [address] [place] [address] Dr. Norma Foss Sapovirus Not detected Normal NOT DETECTED [facility] Comment on above: Performed By: #### G IPANEL #### [facility] [address] [place] [address] Dr. Norma Foss STEC Not detected Normal NOT DETECTED [facility] Comment on above: Performed By: #### G IPANEL #### [facility] [address] [place] [address] Dr. Norma Foss Vibrio Not detected Normal NOT DETECTED [facility] Comment on above: Performed By: #### G IPANEL #### [facility] [address] [place] [address] Dr. Norma Foss Vibrio Cholera Not detected Normal NOT DETECTED The [facility] Comment on above: Performed By: #### G IPANEL #### [facility] [address] [place] [address] Dr. Norma Foss Y. Enterocolitica Not detected Normal NOT DETECTED [facility] Comment on above: Performed By: #### G IPANEL #### [facility] [address] [place] [address] Dr. Norma Foss HEMOGLOBIN AND HEMATOCRITon 12-26-2021 Hematocrit (Bld) [Volume fraction] 38.1 % Normal 36.0-48.0 [facility] Comment on above: Performed By: #### H GBHCT #### [facility] [address] [place] [address] Dr. Norma Foss Hemoglobin (Bld) [Mass/Vol] 12.4 g/dL Normal 12.0-16.0 [facility] Comment on above: Performed By: #### H GBHCT #### [facility] [address] [place] [address] Dr. Norma Foss PROF 14(COMP METB)on 022 Albumin [Mass/Vol] 4.0 g/dL Normal 3.4-5.0 [facility] Comment on above: Performed By: #### H LINDAPN, CMP #### [facility] [address] [place] [address] Dr. Norma Foss Albumin/Globulin [Mass ratio] 1.1 {ratio} Normal [facility] Comment on above: Performed By: #### H STROPN, CMP #### [facility] [address] [place] [address] Dr. Norma Foss ALP [Catalytic activity/Vol] 81 U/L Normal 46-116 [facility] Comment on above: Performed By: #### H LINDAPN, CMP #### [facility] [address] [address] [address] Norma Foss ALT [Catalytic activity/Vol] 20 U/L Normal 14-59 [facility] Comment on above: Performed By: #### H LINDAPN, CMP #### [facility] [address] [place] [address] Dr. Norma Foss Anion gap [Moles/Vol] 12.5 mmol/L Normal [facility] Comment on above: Performed By: #### H STROPN, CMP #### [facility] [address] [place] [address] Dr. Norma Foss AST [Catalytic activity/Vol] 16 U/L Normal 15-37 [facility] Comment on above: Performed By: #### H LINDAPN, CMP #### [facility] [address] [place] [address] Dr. Norma Foss Bilirubin [Mass/Vol] 0.4 mg/dL Normal 0.2-1.0 [facility] Comment on above: Performed By: #### H MIHIR, CMP #### [facility] [address] [place] [address] Dr. Norma Foss Calcium [Mass/Vol] 9.3 mg/dL Normal 8.5-10.1 [facility] Comment on above: Performed By: #### H MIHIR, CMP #### [facility] [address] [place] [address] Dr. Norma Foss Chloride [Moles/Vol] 98 mmol/L Normal 98-107 [facility] Comment on above: Performed By: #### H STROPN, CMP #### [facility] [address] [place] [address] Dr. Norma Foss CO2 [Moles/Vol] 27.4 mmol/L Normal 21.0-32.0 [facility] Comment on above: Performed By: #### H STROPN, CMP #### [facility] [address] [place] [address] Dr. Norma Foss Creatinine [Mass/Vol] 0.84 mg/dL Normal 0.55-1.02 [facility] Comment on above: Performed By: #### H STROPN, CMP #### [facility] [address] [address] [address] Norma Foss EGFR-AF [place] >60 Normal >=60 [facility] Comment on above: Performed By: #### H STROPN, CMP #### [facility] [address] [address] [address] Norma Foss EGFR-NON AF [place] >60 Normal >=60 [facility] Comment on above: Performed By: #### H STROPN, CMP #### [facility] [address] [address] [address] Norma Foss Globulin (S) [Mass/Vol] 3.4 g/dL Normal [facility] Comment on above: Performed By: #### H STROPN, CMP #### [facility] [address] [address] [address] Norma Foss Glucose [Mass/Vol] 190 mg/dL Critically high 74-106 [facility] Comment on above: Performed By: #### H STROPN, CMP #### [facility] [address] [address] [address] Norma Foss Potassium [Moles/Vol] 4.2 mmol/L Normal 3.5-5.1 [facility] Comment on above: Performed By: #### H STROPN, CMP #### [facility] [address] [address] [address] Norma Foss Protein [Mass/Vol] 7.4 g/dL Normal 6.4-8.2 [facility] Comment on above: Performed By: #### H STROPN, CMP #### [facility] [address] [address] [address] Norma Foss Sodium [Moles/Vol] 134 mmol/L Critically low 136-145 [facility] Comment on above: Performed By: #### H STROPN, CMP #### [facility] [address] [address] [address] Norma Foss Urea nitrogen [Mass/Vol] 13.0 mg/dL Normal 7.0-18.0 [facility] Comment on above: Performed By: #### H STROPN, CMP #### [facility] [address] [place] [address] Dr. Norma Foss Urea nitrogen/Creatinine [Mass ratio] 15.4 mg/mg Normal [facility] Comment on above: Performed By: #### H LINDAPN, CMP #### [facility] [address] [place] [address] Dr. Norma Foss PROTIMEon 12-26-2021 INR Coag (PPP) [Relative time] 0.99 {INR} Normal [facility] Comment on above: Performed By: #### P TT, PT #### [facility] [address] [place] [address] Dr. Norma Foss INR GUIDELINES SEE BELOW Normal [facility] Comment on above: Result Comment: PRINCESS RED INR: 2.0 - 3.0 CONDITIONS NOT LISTED BELOW 2.5 - 3.5 FOR PROSTHETIC HEART VALVE REPLACEMENT 2.5 - 3.5 RECURRENT THROMBOSIS Performed By: #### P TT, PT #### [facility] [address] [place] [address] Dr. Norma Foss PT Coag (PPP) [Time] 10.7 s Normal 9.0-11.6 [facility] Comment on above: Performed By: #### P TT, PT #### [facility] [address] [place] [address] Dr. Norma Foss PTTon 12-26-2021 aPTT Coag (Bld) [Time] 25.0 s Normal 22.3-36.2 [facility] Comment on above: Performed By: #### P TT, PT #### [facility] [address] [place] [address] Dr. Norma Foss TROPONIN, HIGH SENSITIVITYon 12-26-2021 HSTROP 5.4 pg/mL Normal 4.0-51.3 [facility] Comment on above: Result Comment: CUT- OFF POINTS HAVE BEEN ESTABLISHED BASED ON THE FOURTH UNIVERSAL DEFINITIONS OF MYOCARDIAL INFARCTION. THE UPPER REFERENCE LIMIT (URL) OF TROPONIN, DEFINED THE 99TH PERCENTILE OF cTnI DISTRIBUTION IN A REFERENCE POPULATION, HAS BEEN CONFIRMED THE DECISION THRESHOLD FOR [place] DIAGNOSIS. Performed By: #### H LINDAPN, CMP #### [facility] [address] [place] [address] Dr. Norma Foss TYPE AND SCREENon 12-26-2021 TYPE AND SCREEN Positive Normal [facility] Comment on above: Performed By: #### P TT, PT #### [facility] [address] [place] [address] Dr. Norma Foss URINE MICROSCOPIC ONLYon BACTERIA TRACE Abnormal NONE SEEN [facility] Comment on above: Performed By: #### P TT, PT #### [facility] [address] [place] [address] Dr. Norma Foss Bacteria identified Cx Nom (U) INDICATED Normal [facility] Comment on above: Performed By: #### P TT, PT #### [facility] [address] [place] [address] Dr. Norma Foss CAST SEEN Abnormal NONE SEEN [facility] Comment on above: Performed By: #### P TT, PT #### [facility] [address] [place] [address] Dr. Norma Foss Crystals LM Nom (Urine sed) NONE SEEN Normal NONE SEEN [facility] Comment on above: Performed By: #### P TT, PT #### [facility] [address] [place] [address] Dr. Norma Foss Epithelial cells LM Ql (Urine sed) MANY Abnormal NONE SEEN /RARE [facility] Comment on above: Performed By: #### P TT, PT #### [facility] [address] [place] [address] Dr. Norma Foss HYALINE CAST FEW Normal [facility] Comment on above: Performed By: #### P TT, PT #### [facility] [address] [place] [address] Dr. Norma Foss MUCOUS TRACE Abnormal NONE SEEN [facility] Comment on above: Performed By: #### P TT, PT #### [facility] [address] [place] [address] Dr. Norma Foss RBC 2-5 Abnormal 0-2 [facility] Comment on above: Performed By: #### P TT, PT #### [facility] [address] [address] [address] Norma Foss WBC 5-10 Abnormal NONE SEEN [facility] Comment on above: Performed By: #### P TT, PT #### [facility] [id number] Norma Foss Encounters Encounter Date Encounter Type Care Provider Facility Start: 03-29-2024 End: 03-29-2024 ambulatory LUBA YOUNGER Not Available Start: 03-09-2024 End: 03-09-2024 Refill Luba Younger MD Work Phone: [facility] Comment on above: Essential hypertensi on (CMS/HCC) Start: 02-23-2024 End: 02-23-2024 Telephone encounter Zamzam GARCIA Work Phone: [facility] Start: 01-11-2024 End: 01-11-2024 ambulatory NELSY ESPITIA Not Available Start: 10-22-2023 End: 10-22-2023 ambulatory RASHI LEE Not Available Start: 03-16-2023 Patient encounter procedure Zamzam GARCIA Work Phone: [facility] Start: 02-19-2022 Encounter for preprocedural laboratory examination DR AIDAN MARY [facility] Start: 02-19-2022 End: 02-19-[address] AIDAN MARY Facility:[facility] Start: 02-15-2022 End: 02-16-[address] AIDAN MARY Facility:[facility] Start: 02-15-2022 End: 02-16-2022 Encounter for preprocedural laboratory examination DR AIDAN MARY Facility:[facility] Start: 02-07-2022 End: 02-08-[address] LUBA YOUNGER Facility:[facility] Start: 12-26-2021 End: 12-27-[address] LUBA YOUNGER Facility:[facility] Plan of Treatment Date Care Activity Detail Author Start: 01-10-2025 End: 01-10-2025 Patient encounter procedure 01/10/2025 9:50 AM EDT Office Visit [facility] [address] [place] [id number] Nelsy Espitia, SHIRT OPERATOR-ASSISTANT CHILD CARE TEACHER [address] [place] [address] [facility] Start: 03-24-2024 End: 03-24-2024 Patient encounter procedure 03/24/2024 2:30 PM EST Office Visit [facility] [address] [facility] [address] [place] [id number] Luba Younger MD [address] [facility] [address] [place] [address] [facility] Start: 03-16-2024 Medicare Annual Well ness (AWV) Medicare Annual Wellness (AWV) [facility] Start: 03-16-2024 Urine screening for protein Diabetes: Urine Protein Screening [facility] Start: 01-17-2024 Influenza vaccination Influenza Vacc ine (#1) [facility] Start: 06-16-2023 Hemoglobin A1c measurement Diabetes: Hemoglobin A1C [facility] Start: 02-01-1958 Glaucoma screening Diabetes: R etinopathy Screening [facility] Immunizations Immunization Date Immunization Notes Care Provider Fa cility 11-25-2022 tetanus toxoid, redu yonathan diphtheria toxoid, and acellular pertussis vaccine, adsorbed Zamzam GARCIA Work Phone: [facility] 01-23-2021 pneumococcal conjuga te vaccine, 13 valent Zamzam GARCIA Work Phone: [facility] 12-25-2020 pneumococcal conjuga te vaccine, 13 valent Zamzam GARCIA Work Phone: [facility] 12-24-2019 pneumococcal polysaccharide vaccine, 23 valent Zamzam GARCIA Work Phone: [facility] 06-06-2015 zoster vaccine, live Zamzam GARCIA Work Phone: [facility] Payers Date Payer Category Payer [employer] others) [employer] [id number] 2022-Present [address] [place] [address] [id number] 2022 () [id number] 2022 [employer] ( [employer] others) [id number] 2013 Medicare [id number] 1959 [employer] ( and others) [id number] 1959 Medicare [id number] 1950 Unknown [id number] 1948 Unknown [id number] 1948 Unknown [id number] 1948 Unknown [id number] 1948 Unknown [id number] 1948 Unknown [id number] 1948 Unknown [id number] Social History Date Type Detail Facility Start: 03-03-2023 Tobacco smoking stat [facility] Ex-smoker [facility] History of tobacco use Current smoker [facility] History of tobacco use Cigarette Smoker [facility] Start: 03-03-2023 Tobacco use and exposure Smoke less tobacco non-user [facility] Start: 01-11-2024 Alcoholic beverage intake Curr ent drinker of alcohol (finding) [facility] Start: 03-16-2023 End: 01-11-2024 History of Social function [facility] Start: 03-16-2023 End: 01-11-2024 Tobacco use panel [facility] Start: 03-03-2023 Tobacco Comment Last smoked: 5-10 ye ars [facility] Start: 1950 Sex assigned at Not on file [facility] Telephone encounter Note 03-09-2024 Telephone Encounter - JOSE Estrada - 03/09/2024 5:21 PM EDT Note Date & Type Note Facility 03-09-2024 Telephone encount er Note Metoprolol sent. [facility] Note 03-09-2024 Telephone Encounter - JOSE Estrada - 03/09/2024 5:21 PM EDT Note Date & Type Note Facility 03-09-2024 Miscellaneous Notes Formattin g of this note might be different from the original. Metoprolol sent. documented in this encounter [facility] Telephone encounter Note 02-23-2024 Telephone Encounter - JOSE Estrada - 02/23/2024 11:31 AM EDT Note Date & Type Note Facility 02-23-2024 Telephone encounter Note Pt called to verify medications had been sent in, advised her that they were sent yesterday to [facility]. She voiced understanding. [facility] Work Phone: Note 02-23-2024 Telephone Encounter - JOSE Estrada - 02/23/2024 11:31 AM EDT Note Date & Type Note Facility 02-23-2024 Miscellaneous Notes Formattin g of this note might be different from the original. Pt called to verify medications had been sent in, advised her that they were sent yesterday to [facility]. She voiced understanding. documented in this encounter [facility] Evaluation note Note Date & Type Note Facility Evaluation note Diagnosis Routine general medical examination at health care facility- Primary Routine general medical examination at a health care facility Benign essential hypertension (CMS/HCC) Essential hypertension, benign Abnormal glucose tolerance test Impaired glucose tolerance test Medicare annual wellness visit, subsequent Hyperlipidemia, unspecified hyperlipidemia type (CMS/HCC) Acute cough Essential hypertension (CMS/HCC) Unspecified essential hypertension documented in this encounter [facility] Summary Purpose Family History No Family History Records FoundNo Family History Records FoundNo Family History Records FoundNo Family History Records Found Advance Directives No Advanced Directives Records FoundNo Advanced Directives Records FoundNo Advanced Directives Records FoundNo Advanced Directives Records Found Additional Source Comments INFORMATION SOURCE (unrecogn ized section and content) DATE CREATED AUTHOR 01/12/2022 [facility] DATE CREATED AUTHOR AUTHOR'S ORGANIZ ATION 02/26/2022 [facility] DATE CREATED AUTHOR AUTHOR'S ORGANIZ ATION 03/30/2024 [facility] EPIC DATE CREATED AUTHOR AUTHOR'S ORGANIZ ATION 04/02/2024 [facility] Care Teams (unrecognized sec tion and content) Exhauster Relationship Specialty Start Date End Date Luba Younger MD [address] [address] [place] [address] PCP - ACO Reach 10/09/22 Luba Younger MD [address] [facility] [address] [place] [address] PCP - General Family Medicine 11/24/22 Exhauster Relationship Specialty Start Date End Date Luba Younger MD [address] [address] [place] [address] PCP - ACO Reach 10/09/22 Luba Younger MD 112 [facility] [address] [place] [address] PCP - General Family Medicine 11/24/22 Reason for Visit (unrecogniz ed section and content) Reason Comments Med Refill FOR RECORDS PERTAINING TO PATIENTS WHO ARE OR HAVE BEEN ENROLLED IN A CHEMICAL DEPENDENCY/SUBSTANCEABUSE PROGRAM, SOME INFORMATION MAY BE OMITTED. This clinical summary was aggregated from multiple sources. Caution should be exercised in using it in the provision of clinical care. This summary normalizes information from multiple sources, and as a consequence, information in this document may materially change the coding, format and clinical context of patient data. In addition, data may be omitted in some cases. CLINICAL DECISIONS SHOULD BE BASED ON THE PRIMARY CLINICAL RECORDS. [facility]. provides no warranty or guarantee of the accuracy or completeness of information in this document.
--- NOTE | 2024-04-06 13:00 | CA_ITS ---
Patient Name: VERONICA COBB MR#: [id number] : 1950 Exam Date: 04/06/2024 Ordering Doctor: DR MIRELLA YOUNGER M.D. ECHOCARDIOGRAM REPORT PROCEDURE: CA ECHO DOPPLER COMPLETE INDICATIONS: Cardiac murmur, hypertension COMPARISON: None. DESCRIPTION: COMPLETE ECHOCARDIOGRAM Real-time transthoracic echocardiography with 2D, M-mode, spectral and color flow Doppler performed. QUALITY: Technical quality was good. LEFT VENTRICLE: Normal chamber size. Borderline left ventricular hypertrophy. Normal systolic function. LV EF: Normal left ventricular ejection fraction, (>55%). DIASTOLIC: Diastolic function is indeterminate. ATRIAL SEPTUM: Visually appears intact. LEFT ATRIUM: Normal chamber size. RIGHT ATRIUM: Normal chamber size. RIGHT VENTRICLE: Normal chamber size. Normal right ventricular systolic function. TRICUSPID VALVE: Normal mobility and thickness. No stenosis with trivial regurgitation. Doppler studies reveal moderately (45-60) elevated right sided pressures. RVSP 46 mmHg MITRAL VALVE: Normal mobility and thickness. No evidence of mitral valve stenosis. Mild mitral annular calcification. Trivial mitral regurgitation. AORTIC VALVE: Normal trileaflet appearance. Mildly calcified aortic valve. Normal leaflet mobility. Doppler velocity suggest no aortic valve stenosis. No aortic regurgitation. AORTIC ROOT: Normal diameter and appearance. PULMONIC VALVE: Not well visualized. No regurgitation. PERICARDIUM: No evidence of pericardial effusion. IVC: Collapses with inspirations. PLEURA: CONCLUSION: 1. Normal left ventricular size and systolic function. Estimated LVEF is 55 to 60%. 2. Normal right ventricular size and systolic function. 3. No significant valvular dysfunction. 4. Mildly calcified aortic valve without significant stenosis. 5. Moderately elevated right-sided pressures. RVSP is 46 mmHg. Adult Echocardiography Procedure Report Left Ventricle LVEDD (3.7 - 5.6 cm): 3.91 cm LVESD (2.2 - 4.0 cm): 2.61 cm LVIVS thickness (0.6 - 1.2 cm): 1.07 cm LVPW thickness (0.5 - 1.0 cm): 1.04 cm e': 0.08 m/s E - e': 10.73 LVOT Max Gradient: 3.12 mm[Hg] LVOT Area (cm2): 0.88 m/s Peak Velocity (LVOT): 0.88 m/s Mean Velocity (LVOT): 0.65 m/s LVOT Diameter 2.00 cm Left Atrium LA Volume Index (2D A2C): 25.89 ml/m2 Left Atrium Systolic Dimension: 3.14 cm Mitral Valve MV E to A Ratio: 0.98 Mitral Valve A-Wave Peak Velocity: 0.88 m/s Mitral Valve E-Wave Peak Velocity: 0.87 m/s Right Ventricle Aorta AO Root Diam: 2.92 cm Aortic Valve AoV Area (Peak Omari): 1.60 cm2, 1.60 cm2 AoV Area (VTI): 1.70 cm2, 1.70 cm2 Peak Velocity(Antegrade Flow): 1.73 m/s Peak Gradient(Antegrade Flow): 11.95 mm[Hg] Mean Velocity(Antegrade Flow): 1.17 m/s Mean Gradient(Antegrade Flow): 6.27 mm[Hg] Velocity Time Integral: 40.09 cm Tricuspid Valve Peak Velocity (Regurgitant Flow): 3.26 m/s Pulmonic Valve Mean Gradient: 2.44 mm[Hg] Mean Velocity: 0.72 m/s Peak Velocity: 1.06 m/s, 0.82 m/s Peak Gradient: 2.71 mm[Hg], 4.49 mm[Hg] Right Atrium Right Atrium Systolic Pressure: 45.60 ml, 45.60 ml Dictated by: King Vera M.D. on 04/06/2024 at 17:14 Approved by: King Vera M.D. on 04/06/2024 at 17:17
== END 2024-04-06 12:43 | disposition home or self-care (01) ==
LOC: CARD 12:42
PROVIDERS: PCP Family Medicine; Visit Provider Family Medicine
DX: R01.1 Cardiac murmur, unspecified (principal)
CPT/HCPCS: 93306

== ENCOUNTER 2025-03-03 09:54 | Outpatient (OUT) | payer MEDICARE, OTHER, SELFPAY ==
--- OUTSIDE RECORDS SUMMARY | 2025-03-03 09:58 | XMS_ITS | CCD ---
Author Organization [facility] Care Team Providers Care Cupola Tender Helper Name Role Phone TYRA, DR AIDAN Hoyos Admitting Unavailabl e GRILLIS, DR AIDAN Hoyos Attending Unavailabl e AREN, DR VU Primary Care Unavailable GRILLIVivian, DR AIDAN Hoyos Consulting Unavailabl e GRILLIS, DR AIDAN Hoyos Admitting Unavailabl e GRILLIS, [...] Unavailable NADERER, DR CORRY Delvalle Consulting Unavailable OBINNA, DR MONROE Consulting Unavailable Luba Younger MD Unavailable Luba Younger MD Primary Care Provider LUBA YOUNGER Attending Unavailable NELSY ESPITIA Attending Unavailable ARENLUBA Delvalle Attending Unavailable Allergies Allergy Classification Reported Allergen(s) Allergy Type Date of Onset Reaction(s) Facility (1 source) Penicillin Drug Allergy [facility]ository (14 sources) Penicillin G Drug Allergy 11-22-[address] [facility] (14 sources) Penicillin G sodium Allergy to substance 11-22-[address] [facility] Medications Current Medications Medication Drug Class(es) Dates Sig (Normalized) Sig (Original) cetirizine hydrochloride 10 mg oral tablet (16 sources) Histamine-1 Receptor Antagonist Start: 03-09-2024 End: 03-29-2024 take 1 tablet by mouth once daily cetirizine (ZyrTEC) 10 MG tablet Indications: Seasonal allergic rhinitis, unspecified trigger Take 1 tablet (10 mg) by mouth Daily 100 tablet 3 03/29/2024 Active Start: 02-22-2024 take 1 tablet by zulay th at bedtime cetirizine (ZyrTEC ALLERGY) 10 MG tablet Indications: Seasonal allergic rhinitis, unspecified trigger Take 1 tablet (10 mg) by mouth at bedtime 30 tablet 02/22/2024 Active take 1 tablet by zulay th at bedtime cetirizine (ZyrTEC ALLERGY) 10 MG tablet Take 10 mg by mouth at bedtime. Active empagliflozin 25 mg oral tablet (5 sources) Sodium-Glucose Cotransporter 2 Inhibitor Start: 10-17-2024 End: 11-16-2024 empagliflozin (Jardiance) 25 MG Indications: Type 2 diabetes mellitus with diabetic cataract (HCC) , Type 2 diabetes mellitus with other specified complication (HCC) Take 1 tablet (25 mg) by mouth Daily 30 tablet 10/17/2024 Active losartan potassium 50 mg oral tablet (16 sources) Angiotensin 2 Receptor Mike Start: 03-09-2024 End: 03-29-2024 take 1 tablet by mouth once daily losartan (Cozaar) 50 MG tablet Indications: Essential hypertension Take 1 tablet (50 mg) by mouth Daily 100 tablet 3 03/29/2024 Active Start: 02-22-2024 take 1 tablet by zulay th once daily losartan (Cozaar) 50 MG tablet Indications: Essential hypertension (CMS/HCC) Take 1 tablet (50 mg) by mouth Daily 30 tablet 02/22/2024 Active Start: 10-19-2023 take 1 tablet by zulay th once daily losartan (Cozaar) 50 MG tablet Indications: Essential hypertension (CMS/HCC) Take 1 tablet (50 mg) by mouth Daily 100 tablet 10/19/2023 Active metoprolol tartrate 25 mg oral tablet (15 sources) beta-Adrenergic Mike Start: 03-09-2024 metopr olol tartrate (Lopressor) 25 MG tablet Indications: Essential hypertension TAKE ONE-HALF (1/2) TABLET TWICE A DAY [...] DAY WITH FOOD 30 tablet 02/22/2024 Active Start: 10-19-2023 metoprolol tar trate (Lopressor) 25 MG tablet Indications: Essential hypertension (CMS/HCC) TAKE ONE-HALF (1/2) TABLET TWICE A DAY WITH FOOD 100 tablet 10/19/2023 Active Problems Active Problems Problem Classification Problem Date Documented Da te Episodic/Chronic Cardiac dysrhythmias (20 sources) Irregular heart beat; Translations: [Cardiac arrhythmia, unspecified] Onset: 11-22-2022 11-22-2022 Chronic Cataract (14 sources) Cataract; Translations: [Unspecified cataract] Onset: 11-22-2022 11-22-2022 Chronic Chronic obstructive pulmonary disease and bronchiectasis (18 sources) Chronic obstructive lung disease; Translations: [Chronic obstructive pulmonary disease, unspecified] Onset: 11-22-2022 11-22-2022 Chronic Diabetes mellitus with complications (14 sources) 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; Translations: [Type 2 diabetes mellitus with diabetic cataract] Onset: 10-17-2024 10-17-2024 Chronic Disorders of lipid metabolism (18 sources) Hyperlipidemia; Translations: [Hyperlipidemia, unspecified] Onset: 11-22-2022 11-22-2022 Chronic Diverticulosis and diverticulitis (16 sources) Diverticulosis of large intestine without perforation or abscess without bleeding; Translations: [Diverticulosis of large intestine without perforation or abscess with bleeding] Onset: 01-01-2022 11-22-2022 Chronic Essential hypertension (20 sources) Essential (primary) hypertension; Translations: [Benign essential [...] [POLYP OF COLON] Onset: 02-26-2022 Episodic Other and unspecified benign neoplasm (4 sources) Skin lesion; Translations: [Hemangioma of skin and subcutaneous tissue] 01-11-2024 Episodic Other and unspecified benign neoplasm (4 sources) Melanocytic nevus of right lower limb; Translations: [Melanocytic nevi of right lower limb, including hip] 01-11-2024 Episodic Other and unspecified benign neoplasm (4 sources) Melanocytic nevus of left lower limb; Translations: [Melanocytic nevi of left lower limb, including hip] 01-11-2024 Episodic Other and unspecified benign neoplasm (2 sources) Melanocytic nevus of trunk; Translations: [Melanocytic nevi of trunk] 01-10-2025 Episodic Other gastrointestinal disorders (1 source) Diarrhea, [...] MALIG NEOPLASM BREAST] Onset: 02-07-2022 Episodic Other skin disorders (4 sources) Lentiginosis; Translations: [Other melanin hyperpigmentation] 01-11-2024 Episodic Other skin disorders (4 sources) Seborrheic keratosis; Translations: [Other seborrheic keratosis] 01-11-2024 Episodic Other upper respiratory disease (16 sources) Seasonal allergic rhinitis; Translations: [Other seasonal allergic rhinitis] Onset: 11-22-2022 11-22-2022 Chronic Pulmonary heart disease (7 sources) Idiopathic pulmonary arterial hypertension ; Translations: [Primary pulmonary hypertension] Onset: 10-17-2024 10-17-2024 Chronic Residual codes; unclassified (1 source) Family [...] Da te Episodic/Chronic Diabetes mellitus without complication (20 sources) Impaired glucose tolerance; Translations: [Impaired glucose tolerance (oral)] Onset: 11-22-2022 11-22-2022 Episodic Heart valve disorders (13 sources) Heart murmur; Translations: [Cardiac murmur, unspecified] Onset: 03-29-2024 03-29-2024 Episodic Other bone disease and musculoskeletal deformities (14 sources) Osteopenia; Translations: [Other specified disorders of bone density and structure, unspecified site] Onset: 11-22-2022 11-22-2022 Episodic Other connective tissue disease (14 sources) Muscle pain; Translations: [Myalgia, unspecified site] Onset: 11-16-2023 11-16-2023 Episodic Other diseases of veins and lymphatics (2 sources) Disorder of vein of lower extremity; Translations: [Venous insufficiency (chronic) (peripheral)] 01-11-2024 Episodic Other skin disorders (14 sources) Disorder of skin of upper limb; Translations: [Disorder of the skin and subcutaneous tissue, unspecified] Onset: 01-05-2023 01-05-2023 Episodic Other upper respiratory infections (14 sources) Upper respiratory infection; Translations: [Acute upper respiratory infection, unspecified] Onset: 02-23-2023 02-23-2023 Episodic Results Test Name Value Interpretation Reference Range Facility Laboratory - Hematology and Cell countson 10-17-2024 HbA1c (Bld) [Mass fraction] 7.3 % [facility] No Panel Informationon 10-17 Interpretation and review of laboratory results Abnormal [facility] ALBUMIN, RANDOM URINE W/CREA KULWINDERon 03-30-2024 ALBUMIN, URINE <0.2 Normal See Note: [facility] Comment on above: Result Comment: Michelle deleon Range: Reference Range Not established Performed By: #### 6 399, 34972, 65, 7600 #### [facility] [address], [address] [place] [address] Traffic Maintenance Supervisor: Wilfrido Gibson MD ALBUMIN/CREATININE RATIO, RANDOM URINE [...] diagnostic category. Performed By: #### 6 399, 02216, 65, 7600 #### [facility] [address], [address] [place] [address] Traffic Maintenance Supervisor: Wilfrido Gibson MD Creatinine (U) [Mass/Vol] 10 mg/dL Low 20-275 [facility] Comment on above: Performed By: #### 6 399, , 65, 7600 #### [facility] [place] [address] Traffic Maintenance Supervisor: Wilfrido Gibson MD CBC (INCLUDES DIFF/PLT)on Basophils (Bld) [#/Vol] 0.047 10*3/uL Normal 0-200 [facility] Comment on above: Performed By: #### 6 399, 22958, 65, 7600 #### [facility] [place] [address] Traffic Maintenance Supervisor: Wilfrido Gibson MD Basophils/100 WBC (Bld) 0.5 % Normal [facility] Comment on above: Performed By: #### 6 399, 26828, 65, 7600 #### [facility] of [address], [address] [place] [address] Traffic Maintenance Supervisor: Wilfrido Gibson MD Eosinophils (Bld) [#/Vol] 0.075 10*3/uL Normal 15-500 [facility] Comment on above: Performed By: #### 6 399, 26141, 6517, 7600 #### [facility] of [address], [address] [place] [address] Traffic Maintenance Supervisor: Wilfrido Gibson MD Eosinophils/100 WBC (Bld) 0.8 % Normal [facility] Comment on above: Performed By: #### 6 399, 06035, 65, 7600 #### [facility] of [place] [address] Traffic Maintenance Supervisor: Wilfrido Gibson MD Erythrocyte distribution width (RBC) [Ratio] 11.7 % Normal 11.0-15.0 [facility] Comment on above: Performed By: #### 6 399, 62531, 65, 7600 #### [facility] of [address], [address] [place] [address] Traffic Maintenance Supervisor: Wilfrido Gibson MD Hematocrit (Bld) [Volume fraction] 44.4 % Normal 35.0-45.0 [facility] Comment on above: Performed By: #### 6 399, 61524, 65, 7600 #### [facility] of [place] [address] Traffic Maintenance Supervisor: Wilfrido Gibson MD Hemoglobin (Bld) [Mass/Vol] 15.1 g/dL Normal 11.7-15.5 [facility] Comment on above: Performed By: #### 6 399, 84001, 6517, 7600 #### [facility] of [place] [address] Traffic Maintenance Supervisor: Wilfrido Gibson MD Lymphocytes (Bld) [#/Vol] 3.187 10*3/uL Normal 850-3900 [facility] Comment on above: Performed By: #### 6 399, 65296, 6517, 7600 #### [facility] of [address], [address] [place] [address] Traffic Maintenance Supervisor: Wilfrido Gibson MD Lymphocytes/100 WBC (Bld) 33.9 % Normal [facility] Comment on above: Performed By: #### 6 399, 95104, 65, 7600 #### [facility] of [address], [address] [place] [address] Traffic Maintenance Supervisor: Wilfrido Gibson MD MCH (RBC) [Entitic mass] 31.5 pg Normal 27.0-33.0 [facility] Comment on above: Performed By: #### 6 399, , 6516, 7600 #### [facility] of [place] [address] Traffic Maintenance Supervisor: Wilfrido Gibson MD MCHC (RBC) [Mass/Vol] 34.0 [...] condition. Performed By: #### 6 399, , 6516, 7600 #### [facility] of [place] [address] Traffic Maintenance Supervisor: Wilfrido Gibson MD MCV (RBC) [Entitic vol] 92.5 fL Normal 80.0-100.0 [facility] Comment on above: Performed By: #### 6 399, , 65, 7600 #### [facility] [place] [address] Traffic Maintenance Supervisor: Wilfrido Gibson MD Monocytes (Bld) [#/Vol] 0.592 10*3/uL Normal 200-950 [facility] Comment on above: Performed By: #### 6 399, 58590, 65, 7600 #### [facility] of [place] [address] Traffic Maintenance Supervisor: Wilfrido Gibson MD Monocytes/100 WBC (Bld) 6.3 % Normal [facility] Comment on above: Performed By: #### 6 399, 30392, 65, 7600 #### [facility] of [place] [address] Traffic Maintenance Supervisor: Wilfrido Gibson MD Neutrophils (Bld) [#/Vol] 5.499 10*3/uL Normal 1707-3716 [facility] Comment on above: Performed By: #### 6 399, 05962, 65, 7600 #### [facility] of [place] [address] Traffic Maintenance Supervisor: Wilfrido Gibson MD Neutrophils/100 WBC (Bld) 58.5 % Normal [facility] Comment on above: Performed By: #### 6 399, 15980, 6516, 7600 #### [facility] of [place] [address] Traffic Maintenance Supervisor: Wilfrido Gibson MD Platelet mean volume (Bld) [Entitic vol] 9.9 fL Normal 7.5-12.5 [facility] Comment on above: Performed By: #### 6 399, 08262, 65, 7600 #### [facility] of [place] [address] Traffic Maintenance Supervisor: Wilfrido Gibson MD Platelets (Bld) [#/Vol] 256 10*3/uL Normal 140-400 [facility] Comment on above: Performed By: #### 6 399, 40353, 65, 7600 #### [facility] of [place] [address] Traffic Maintenance Supervisor: Wilfrido Gibson MD RBC (Bld) [#/Vol] 4.80 10*6/uL Normal 3.80-5.10 [facility] Comment on above: Performed By: #### 6 399, 21248, 65, 7600 #### [facility] of [address], [address] [place] [address] Traffic Maintenance Supervisor: Wilfrido Gibson MD WBC (Bld) [#/Vol] 9.4 10*3/uL Normal 3.8-10.8 [facility] Comment on above: Performed By: #### 6 399, 35315, 6150, 5550 #### [facility] [address] [facility], [address] [place] [address] Traffic Maintenance Supervisor: Wilfrido Gibson MD CBC W Auto Differential pane l (Bld)on 03-30-2024 Basophils (Bld) [#/Vol] 47 10*3/uL [facility] Basophils/100 WBC (Bld) 0.5 % [facility] Eosinophils (Bld) [#/Vol] 75 10*3/uL [facility] Eosinophils/100 WBC (Bld) 0.8 % [facility] Erythrocyte distribution width (RBC) [Ratio] 11.7 % 11.0 - 15.0 % [facility] Hematocrit (Bld) [Volume fraction] 44.4 % 35.0 - 45.0 % [facility] Hemoglobin (Bld) [Mass/Vol] 15.1 g/dL 11.7 - 15.5 g/dL [facility] Lymphocytes (Bld) [#/Vol] 3187 10*3/uL [facility] Lymphocytes/100 WBC (Bld) 33.9 % [facility] MCH (RBC) [Entitic mass] 31.5 pg 27.0 - 33.0 pg [facility] MCHC (RBC) [Mass/Vol] 34 g/dL 32.0 - 36.0 g/dL [facility] Comment on above: For adults, a slight decrease in the calculated MCHC value (in the range of 30 to 32 g/dL) is most likely not clinically significant; however, it should be interpreted with caution in correlation with other red cell parameters and the patient's clinical condition. MCV (RBC) [Entitic vol] 92.5 fL 80.0 - 100.0 fL [facility] Monocytes (Bld) [#/Vol] 592 10*3/uL [facility] Monocytes/100 WBC (Bld) 6.3 % [facility] Neutrophils (Bld) [#/Vol] 5499 10*3/uL [facility] Neutrophils/100 WBC (Bld) 58.5 % [facility] Platelet mean volume (Bld) [Entitic vol] 9.9 fL 7.5 - 12.5 fL [facility] Platelets (Bld) [#/Vol] 256 10*3/uL [facility] RBC (Bld) [#/Vol] 4.8 10*6/uL [facility] WBC (Bld) [#/Vol] 9.4 10*3/uL [facility] COMPREHENSIVE METABOLIC PANE [facility] 03-30-2024 Albumin [Mass/Vol] 4.4 g/dL Normal 3.6-5.1 [facility] Comment on above: Performed By: #### 6 399, 58621, 6517, 7600 #### [facility] of [place] [address] Traffic Maintenance Supervisor: Wilfrido Gibson MD Albumin/Globulin [Mass ratio] 1.8 {ratio} Normal 1.0-2.5 [facility] Comment on above: Performed By: #### 6 399, 43594, 65, 7600 #### [facility] of [place] [address] Traffic Maintenance Supervisor: Wilfrido Gibson MD ALP [Catalytic activity/Vol] 59 U/L Normal 37-153 [facility] Comment on above: Performed By: #### 6 399, 25574, 6517, 7600 #### [facility] of [place] [address] Traffic Maintenance Supervisor: Wilfrido Gibson MD ALT [Catalytic activity/Vol] 20 U/L Normal 6-29 [facility] Comment on above: Performed By: #### 6 399, 69413, 65, 7600 #### [facility] of [place] [address] Traffic Maintenance Supervisor: Wilfrido Gibson MD AST [Catalytic activity/Vol] 32 U/L Normal 10-35 [facility] Comment on above: Performed By: #### 6 399, 67974, 6517, 7600 #### [facility] of [place] [address] Traffic Maintenance Supervisor: Wilfrido Gibson MD Bilirubin [Mass/Vol] 0.7 mg/dL Normal 0.2-1.2 [facility] Comment on above: Performed By: #### 6 399, 07571, 65, 7600 #### [facility] of [place] [address] Traffic Maintenance Supervisor: Wilfrido Gibson MD BUN/CREATININE RATIO SEE NOTE: Normal 6-22 [facility] Comment on above: Result Comment: Not Reported: BUN and Creatinine are within reference range. Performed By: #### 6 399, 68562, 65, 7600 #### [facility] of [place] [address] Traffic Maintenance Supervisor: Wilfrido Gibson MD Calcium [Mass/Vol] 9.3 mg/dL Normal 8.6-10.4 [facility] Comment on above: Performed By: #### 6 399, 06769, 65, 7600 #### [facility] of [place] [address] Traffic Maintenance Supervisor: Wilfrido Gibson MD Chloride [Moles/Vol] 100 mmol/L Normal 98-110 [facility] Comment on above: Performed By: #### 6 399, 29853, 6517, 7600 #### [facility] [place] [address] Traffic Maintenance Supervisor: Wilfrido Gibson MD CO2 [Moles/Vol] 26 mmol/L Normal 20-32 [facility] Comment on above: Performed By: #### 6 399, 85604, 6517, 7600 #### [facility] of [place] [address] Traffic Maintenance Supervisor: Wilfrido Gibson MD Creatinine [Mass/Vol] 0.76 mg/dL Normal 0.60-1.00 [facility] Comment on above: Performed By: #### 6 399, 64347, 6517, 7600 #### [facility] of [place] [address] Traffic Maintenance Supervisor: Wilfrido Gibson MD GFR/1.73 sq M.predicted among non-blacks MDRD (S/P/Bld) [Vol rate/Area] 81 mL/min/{1.73_m2} Normal > OR = 60 [facility] Comment on above: Performed By: #### 6 399, 72051, 65, 7600 #### [facility] [place] [address] Traffic Maintenance Supervisor: Wilfrido Gibson MD Globulin (S) [Mass/Vol] 2.5 g/dL Normal 1.9-3.7 [facility] Comment on above: Performed By: #### 6 399, , 6516, 7600 #### [facility] [place] [address] Traffic Maintenance Supervisor: Wilfrido Gibson MD Glucose [Mass/Vol] 114 mg/dL High 65-99 [facility] Comment on above: Result Comment: Fasting reference interval For someone without known diabetes, a glucose value between 100 and 125 mg/dL is consistent with prediabetes and should be confirmed with a follow-up test. Performed By: #### 6 399, , 6516, 0 #### [facility] [place] [address] Traffic Maintenance Supervisor: Wilfrido Gibson MD Potassium [Moles/Vol] 5.0 mmol/L Normal 3.5-5.3 [facility] Comment on above: Performed By: #### 6 399, 64286, 65, 7600 #### [facility] [place] [address] Traffic Maintenance Supervisor: Wilfrido Gibson MD Protein [Mass/Vol] 6.9 g/dL Normal 6.1-8.1 [facility] Comment on above: Performed By: #### 6 399, 11503, 65, 7600 #### [facility] [place] [address] Traffic Maintenance Supervisor: Wilfrido Gibson MD Sodium [Moles/Vol] 135 mmol/L Normal 135-146 [facility] Comment on above: Performed By: #### 6 399, 08336, 65, 7600 #### [facility] [address] [place] [address] Traffic Maintenance Supervisor: Wilfrido Gibson MD Urea nitrogen [Mass/Vol] 12 mg/dL Normal 7-25 [facility] Comment on above: Performed By: #### 6 399, 00958, 6517, 7600 #### [facility] [address], [address] [place] [address] Traffic Maintenance Supervisor: Wilfrido Gibson MD LIPID PANEL, [facility] [place] 03-18 Cholesterol [Mass/Vol] 254 mg/dL High <200 [facility] Comment on above: Order Comment: DIFFI CULT DRAW- 03/29/1924 Performed By: #### 6 399, 66123, 6517, 7600 #### [facility] [address], [address] [place] [address] Traffic Maintenance Supervisor: Wilfrido Gibson MD Cholesterol in HDL [Mass/Vol] 53 mg/dL Normal > OR = 50 [facility] Comment on above: Order Comment: DIFFI CULT DRAW- 03/29/1924 Performed By: #### 6 399, 93405, 6517, 7600 #### [facility] [address], [address] [place] [address] Traffic Maintenance Supervisor: Wilfrido Gibson MD Cholesterol in LDL [Mass/Vol] [...] equation in the estimation of LDL-C. Dexter SS et al. DONNIE. 2013;310(19): 6390-9372 (http://education.[employer]/faq/ZKH972) Performed By: #### 6 399, 57940, 6517, 7600 #### [facility] [address], [address] [place] [address] Traffic Maintenance Supervisor: Wilfrido Gibson MD Cholesterol.total/C holesterol in HDL [Mass ratio] 4.8 {ratio} Normal <5.0 [facility] Comment on above: Order Comment: DIFFI CULT DRAW- 03/29/1924 Performed By: #### 6 399, 11486, 6517, 7600 #### [facility] [address], [address] [place] [address] Traffic Maintenance Supervisor: Wilfrido Gibson MD NON HDL CHOLESTEROL 201 mg/dL (calc) High <130 [facility] Comment on above: Order Comment: DIFFI CULT DRAW- 03/29/1924 Result Comment: For patients with diabetes plus 1 major ASCVD risk factor, treating to a non-HDL-C goal of <100 mg/dL (LDL-C of <70 mg/dL) is considered a therapeutic option. Performed By: #### 6 399, 19643, 0017, 6990 #### [facility] [address], [address] [place] [address] Traffic Maintenance Supervisor: Wilfrido Gibson MD Triglyceride [Mass/Vol] 210 mg/dL High <150 [facility] Comment on above: Order Comment: DIFFI CULT DRAW- 03/29/1924 Result Comment: If a non-fasting specimen was collected, consider repeat triglyceride testing on a fasting specimen if clinically indicated. Monet et al. J. of Clin. Lipidol. 2015;9:129-169. Performed By: #### 6 399, 06361, 8817, 0370 #### [facility] [address], [address] [place] [address] Traffic Maintenance Supervisor: Wilfrido Gibson MD Laboratory - Chemistry and C hemistry - challengeon 03-30-2024 Albumin [Mass/Vol] 4.4 g/dL 3.6 - 5.1 g/dL [facility] Albumin/Globulin [Mass ratio] 1.8 {ratio} [facility] ALP [Catalytic activity/Vol] 59 U/L 37 - 153 U/L [facility] ALT [Catalytic activity/Vol] 20 U/L 6 - 29 U/L [facility] AST [Catalytic activity/Vol] 32 U/L 10 - 35 U/L [facility] Bilirubin [Mass/Vol] 0.7 mg/dL 0.2 - 1.2 mg/dL [facility] Calcium [Mass/Vol] 9.3 mg/dL 8.6 - 10. 4 mg/dL [facility] Chloride [Moles/Vol] 100 mmol/L 98 - 110 mmol/L [facility] CO2 [Moles/Vol] 26 mmol/L 20 - 32 mmol/L [facility] Creatinine [Mass/Vol] 0.76 mg/dL 0.60 - 1.00 mg/dL [facility] GFR/1.73 sq M.predicted among non-blacks MDRD (S/P/Bld) [Vol rate/Area] 81 mL/min/{1.73_m2} > OR = 60 mL/min/1.73m2 [facility] Globulin (S) [Mass/Vol] 2.5 g/dL [facility] Glucose [Mass/Vol] 114 mg/dL High 65 - 99 mg/dL [facility] Comment on above: Fasting reference interval For someone without known diabetes, a glucose value between 100 and 125 mg/dL is consistent with prediabetes and should be confirmed with a follow-up test. Potassium [Moles/Vol] 5 mmol/L 3.5 - 5.3 mmol/L [facility] Protein [Mass/Vol] 6.9 g/dL 6.1 - 8.1 g/dL [facility] Sodium [Moles/Vol] 135 mmol/L 135 - 146 mmol/L [facility] Urea nitrogen [Mass/Vol] 12 mg/dL 7 - 25 mg/dL [facility] Urea nitrogen/Creatinine [Mass ratio] SEE NOTE: [facility] Comment on above: Not Reported: BUN an d Creatinine are within reference range. Lipid 1996 panelon 4 Cholesterol [Mass/Vol] 254 mg/dL High NINF - 200 mg/dL [facility] Cholesterol in HDL [Mass/Vol] 53 mg/dL > OR = 50 [facility] Cholesterol in LDL [Mass/Vol] 164 mg/dL High mg/dL (calc) [facility] Comment on above: Reference range: <10 0 Desirable range <100 mg/dL for primary prevention; <70 mg/dL for patients with CHD or diabetic patients with > or = 2 CHD risk factors. LDL-C is now calculated using the Dexter-West calculation, which is a validated novel method providing better accuracy than the Friedewald equation in the estimation of LDL-C. Dexter SS et al. DONNIE. 2013;310(19): 9377-0777 (http://education.[employer]/faq/ZXZ122) Cholesterol non HDL [Mass/Vol] 201 mg/dL [place] [facility] Comment on above: For patients with di abetes plus 1 major ASCVD risk factor, treating to a non-HDL-C goal of <100 mg/dL (LDL-C of <70 mg/dL) is considered a therapeutic option. Cholesterol.total/C holesterol in HDL [Mass ratio] 4.8 {ratio} [facility] Triglyceride [Mass/Vol] 210 mg/dL High [facility] - 150 mg/dL [facility] Comment on above: If a non-fasting specimen was collected, consider repeat triglyceride testing on a fasting specimen if clinically indicated. Monet et al. J. of Clin. Lipidol. 2015;9:129-169. Microalbumin/Creatinine rati o panel (U)on 03-30-2024 Albumin DL <= 20 mg/L (U) [Mass/Vol] mg/dL See Note: mg/dL [facility] Comment on above: Reference Range: Reference Range Not established Albumin/Creatinine (U) [Mass ratio] NOTE [facility] Comment on above: NOTE: The urine albu min value is less than 0.2 mg/dL therefore [...] patient to be within a diagnostic category. Creatinine (U) [Mass/Vol] 10 mg/dL Low 20 - 275 mg/dL [facility] No Panel Informationon 03-30 Interpretation and review of laboratory results Abnormal [facility] [email or web address] re DIFFICULT DRAW- 03/29/1924 untapt Organization Information Site ID: QPT Name: [facility] [employer] [employer] [facility] Address: [address] [place] [address], [address] [place] [id number] Director: Wilfrido Gibson MD [email or web address] Laboratory - Hematology and Cell countson 03-29-2024 HbA1c (Bld) [Mass fraction] 6.9 % [facility] No Panel Informationon 03-29 Interpretation and review of laboratory results Abnormal [facility] Covid-19 PCR (CVDTB)on SARS-CoV-2 (COVID-19) RNA NORMA+probe Ql (Unsp spec) Not detected Normal NOT DETECTED [facility] Comment on above: Result Comment: This test is not yet approved or cleared by the [place] FDA. When there are no FDA-approved or cleared tests available, and other criteria are met, FDA can make tests available under an emergency access mechanism called an Emergency Use Authorization (EUA). The EUA for this test is supported by the [place] of Health and Human Service's (HHS's) declaration [...] consistent with SARS-CoV-2. Performed By: #### [facility] #### [facility] [address] [place] [address] Dr. Norma Foss MG MAMM SCREEN 3D DARRYL CADon 02-07-2022 MG MAMM SCREEN 3D DARRYL CAD Patient: VERONICA SALINAS Exam Date: 02/07/2022 : 1950 Gender:F Ordering : DR LUBA YOUNGER M.D. Admission #: [id number] Family : Order #: [id number] CLICK HERE TO VIEW EXAM RADIOLOGY REPORT [...] uterine cancer at age 26. LOCATION: [facility] BREAST COMPOSITION: Heterogeneously dense,which may obscure [...] Stone MD on 02/07/2022 at 13:13 Normal [facility] Physician Referralon 022 Physician Referral [id number] [phone] [id number] Normal [facility] ANTIBODY ID PANELon 01-01-20 22 ANTIBODY ID PANEL Antibody ID Negative Blood Bank Notes No antibodies found at [facility] Reference Lab Normal [facility] Comment on above: Performed By: #### P TT, PT #### [facility] [address] [place] [address] Dr. Norma Foss CBC AUTO DIFFon 12-27-2021 BASO # 0.0 103/ul Normal 0.0-0.1 [facility] Comment on above: Performed By: #### C BC #### [facility] [address] [place] [address] Dr. Norma Foss Basophils/100 WBC (Bld) 0.4 % Normal 0.2-2.0 [facility] Comment on above: Performed By: #### C BC #### [facility] [address] [place] [address] Dr. Norma Foss EO # 0.1 103/ul Normal 0.0-0.7 [facility] Comment on above: Performed By: #### C BC #### [facility] [address] [place] [address] Dr. Norma Foss Eosinophils/100 WBC (Bld) 1.1 % Normal 0.9-7.0 [facility] Comment on above: Performed By: #### C BC #### [facility] [address] [address] [address] Norma Foss Erythrocyte distribution width (RBC) [Ratio] 12.5 % Normal 11.0-15.0 [facility] Comment on above: Performed By: #### C BC #### [facility] [address] [place] [address] Dr. Norma Foss Hematocrit (Bld) [Volume fraction] 36.2 % Normal 36.0-48.0 [facility] Comment on above: Performed By: #### C BC #### [facility] [address] [place] [address] Dr. Norma Foss Hemoglobin (Bld) [Mass/Vol] 11.4 g/dL Critically low 12.0-16.0 [facility] Comment on above: Performed By: #### C BC #### [facility] [address] [place] [address] Dr. Norma Foss IG # 0.02 10e3/ul Normal 0.00-0.03 [facility] Comment on above: Performed By: #### C BC #### [facility] [address] [place] [address] Dr. Norma Foss IG % 0.2 % Normal 0.0-0.5 [facility] Comment on above: Performed By: #### C BC #### [facility] [address] [place] [address] Dr. Norma Foss LYMPH # 3.3 103/ul Normal 1.2-3.8 [facility] Comment on above: Performed By: #### C BC #### [facility] [address] [place] [address] Dr. Norma Foss Lymphocytes/100 WBC (Bld) 30.3 % Normal 20.5-60.0 [facility] Comment on above: Performed By: #### C BC #### [facility] [address] [place] [address] Dr. Norma Foss MANUAL DIFF REQ NO Normal [facility] Comment on above: Performed By: #### C BC #### [facility] [address] [address] [address] Norma Foss MCH (RBC) [Entitic mass] 30.8 pg Normal 26.7-34.0 [facility] Comment on above: Performed By: #### C BC #### [facility] [address] [place] [address] Dr. Norma Foss MCHC (RBC) [Mass/Vol] 31.5 g/dL Normal 29.9-35.2 [facility] Comment on above: Performed By: #### C BC #### [facility] [address] [place] [address] Dr. Norma Foss MCV (RBC) [Entitic vol] 97.8 fL Normal 81.0-99.0 [facility] Comment on above: Performed By: #### C BC #### [facility] [address] [place] [address] Dr. Norma Foss MONO # 0.7 103/ul Normal 0.3-0.8 [facility] Comment on above: Performed By: #### C BC #### [facility] [address] [place] [address] Dr. Norma Foss Monocytes/100 WBC (Bld) 6.6 % Normal 1.7-12.0 [facility] Comment on above: Performed By: #### C BC #### [facility] [address] [place] [address] Dr. Norma Foss NEUT # 6.7 103/ul Critically high 1.4-6.5 [facility] Comment on above: Performed By: #### C BC #### [facility] [address] [place] [address] Dr. Norma Foss Neutrophils/100 WBC (Bld) 61.4 % Normal 43.0-75.0 [facility] Comment on above: Performed By: #### C BC #### [facility] [address] [place] [address] Dr. Norma Foss Platelet mean volume (Bld) [Entitic vol] 9.4 fL Critically low 9.5-13.5 [facility] Comment on above: Performed By: #### C BC #### [facility] [address] [place] [address] Dr. Norma Foss PLT 223 103/ul Normal 150-450 [facility] Comment on above: Performed By: #### C BC #### [facility] [address] [address] [address] Norma Foss RBC 3.70 106/ul Critically low 4.20-5.40 [facility] Comment on above: Performed By: #### C BC #### [facility] [address] [place] [address] Dr. Norma Foss WBC 10.9 103/ul Normal 4.0-11.0 [facility] Comment on above: Performed By: #### C BC #### [facility] [address] [place] [address] Dr. Norma Foss PROF 14(COMP METB)on 022 Albumin [Mass/Vol] 2.9 g/dL Critically low 3.4-5.0 [facility] Comment on above: Performed By: #### C MP #### [facility] [address] [place] [address] Dr. Norma Foss Albumin/Globulin [Mass ratio] 1.1 {ratio} Normal [facility] Comment on above: Performed By: #### C MP #### [facility] [address] [place] [address] Dr. Norma Foss ALP [Catalytic activity/Vol] 63 U/L Normal 46-116 [facility] Comment on above: Performed By: #### C MP #### [facility] [address] [place] [address] Dr. Norma Foss ALT [Catalytic activity/Vol] 17 U/L Normal 14-59 [facility] Comment on above: Performed By: #### C MP #### [facility] [address] [place] [address] Dr. Norma Foss Anion gap [Moles/Vol] 10.9 mmol/L Normal [facility] Comment on above: Performed By: #### C MP #### [facility] [address] [place] [address] Dr. Norma Foss AST [Catalytic activity/Vol] 17 U/L Normal 15-37 [facility] Comment on above: Performed By: #### C MP #### [facility] [address] [address] [address] Norma Foss Bilirubin [Mass/Vol] 0.3 mg/dL Normal 0.2-1.0 [facility] Comment on above: Performed By: #### C MP #### [facility] [address] [address] [address] Norma Foss Calcium [Mass/Vol] 8.4 mg/dL Critically low 8.5-10.1 [facility] Comment on above: Performed By: #### C MP #### [facility] [address] [address] [address] Norma Foss Chloride [Moles/Vol] 107 mmol/L Normal 98-107 [facility] Comment on above: Performed By: #### C MP #### [facility] [address] [address] [address] Norma Foss CO2 [Moles/Vol] 25.1 mmol/L Normal 21.0-32.0 [facility] Comment on above: Performed By: #### C MP #### [facility] [address] [place] [address] Dr. Norma Foss Creatinine [Mass/Vol] 0.85 mg/dL Normal 0.55-1.02 [facility] Comment on above: Performed By: #### C MP #### [facility] [address] [address] [address] Norma Foss EGFR-AF TRINIDADIAN >60 Normal >=60 [facility] Comment on above: Performed By: #### C MP #### [facility] [address] [address] [address] Norma Foss EGFR-NON AF TRINIDADIAN >60 Normal >=60 [facility] Comment on above: Performed By: #### C MP #### [facility] [address] [address] [address] Norma Foss Globulin (S) [Mass/Vol] 2.7 g/dL Normal [facility] Comment on above: Performed By: #### C MP #### [facility] [address] [address] [address] Norma Foss Glucose [Mass/Vol] 138 mg/dL Critically high 74-106 [facility] Comment on above: Performed By: #### C MP #### [facility] [address] [address] [address] Norma Foss Potassium [Moles/Vol] 4.0 mmol/L Normal 3.5-5.1 [facility] Comment on above: Performed By: #### C MP #### [facility] [address] [address] [address] Norma Foss Protein [Mass/Vol] 5.6 g/dL Critically low 6.4-8.2 [facility] Comment on above: Performed By: #### C MP #### [facility] [address] [address] [address] Norma Foss Sodium [Moles/Vol] 139 mmol/L Normal 136-145 [facility] Comment on above: Performed By: #### C MP #### [facility] [address] [address] [address] Norma Foss Urea nitrogen [Mass/Vol] 8.0 mg/dL Normal 7.0-18.0 [facility] Comment on above: Performed By: #### C MP #### [facility] [address] [address] [address] Norma Foss Urea nitrogen/Creatinine [Mass ratio] 9.4 mg/mg Normal [facility] Comment on above: Performed By: #### C MP #### [facility] [address] [address] [address] Norma Foss CBC AUTO DIFFon 12-26-2021 BASO # 0.1 103/ul Normal 0.0-0.1 [facility] Comment on above: Performed By: #### P TT, PT #### [facility] [address] [address] [address] Norma Fsos Basophils/100 WBC (Bld) 0.4 % Normal 0.2-2.0 [facility] Comment on above: Performed By: #### P TT, PT #### [facility] [address] [place] [address] Dr. Norma Foss EO # 0.0 103/ul Normal 0.0-0.7 [facility] Comment on above: Performed By: #### P TT, PT #### [facility] [address] [place] [address] Dr. Norma Foss Eosinophils/100 WBC (Bld) 0.2 % Critically low 0.9-7.0 [facility] Comment on above: Performed By: #### P TT, PT #### [facility] [address] [place] [address] Dr. Norma Foss Erythrocyte distribution width (RBC) [Ratio] 12.2 % Normal 11.0-15.0 [facility] Comment on above: Performed By: #### P TT, PT #### [facility] [address] [place] [address] Dr. Norma Foss Hematocrit (Bld) [Volume fraction] 41.5 % Normal 36.0-48.0 [facility] Comment on above: Performed By: #### P TT, PT #### [facility] [address] [place] [address] Dr. Norma Foss Hemoglobin (Bld) [Mass/Vol] 13.8 g/dL Normal 12.0-16.0 [facility] Comment on above: Performed By: #### P TT, PT #### [facility] [address] [place] [address] Dr. Norma Foss IG # 0.03 10e3/ul Normal 0.00-0.03 [facility] Comment on above: Performed By: #### P TT, PT #### [facility] [address] [place] [address] Dr. Norma Foss IG % 0.2 % Normal 0.0-0.5 [facility] Comment on above: Performed By: #### P TT, PT #### [facility] [address] [place] [address] Dr. Norma Foss LYMPH # 2.3 103/ul Normal 1.2-3.8 [facility] Comment on above: Performed By: #### P TT, PT #### [facility] [address] [place] [address] Dr. Norma Foss Lymphocytes/100 WBC (Bld) 17.4 % Critically low 20.5-60.0 [facility] Comment on above: Performed By: #### P TT, PT #### [facility] [address] [place] [address] Dr. Norma Foss MANUAL DIFF REQ NO Normal [facility] Comment on above: Performed By: #### P TT, PT #### [facility] [address] [place] [address] Dr. Norma Foss MCH (RBC) [Entitic mass] 30.6 pg Normal 26.7-34.0 [facility] Comment on above: Performed By: #### P TT, PT #### [facility] [address] [place] [address] Dr. Norma Foss MCHC (RBC) [Mass/Vol] 33.3 g/dL Normal 29.9-35.2 [facility] Comment on above: Performed By: #### P TT, PT #### [facility] [address] [place] [address] Dr. Norma Foss MCV (RBC) [Entitic vol] 92.0 fL Normal 81.0-99.0 [facility] Comment on above: Performed By: #### P TT, PT #### [facility] [address] [place] [address] Dr. Norma Foss MONO # 0.6 103/ul Normal 0.3-0.8 [facility] Comment on above: Performed By: #### P TT, PT #### [facility] [address] [place] [address] Dr. Norma Foss Monocytes/100 WBC (Bld) 4.8 % Normal 1.7-12.0 [facility] Comment on above: Performed By: #### P TT, PT #### [facility] [address] [place] [address] Dr. Norma Foss NEUT # 10.0 103/ul Critically high 1.4-6.5 [facility] Comment on above: Performed By: #### P TT, PT #### [facility] [address] [address] [address] Norma Foss Neutrophils/100 WBC (Bld) 77.0 % Critically high 43.0-75.0 [facility] Comment on above: Performed By: #### P TT, PT #### [facility] [address] [place] [address] Dr. Norma Foss Platelet mean volume (Bld) [Entitic vol] 9.3 fL Critically low 9.5-13.5 [facility] Comment on above: Performed By: #### P TT, PT #### [facility] [address] [place] [address] Dr. Norma Foss PLT 262 103/ul Normal 150-450 [facility] Comment on above: Performed By: #### P TT, PT #### [facility] [address] [place] [address] Dr. Norma Foss RBC 4.51 106/ul Normal 4.20-5.40 [facility] Comment on above: Performed By: #### P TT, PT #### [facility] [address] [place] [address] Dr. Norma Foss WBC 13.0 103/ul Critically high 4.0-11.0 [facility] Comment on above: Performed By: #### P TT, PT #### [facility] [address] [place] [address] ABD/PELVIS WO CONon [...] MARCELLA STONE Date: 2021-12-26 10:09 Normal [facility] CULTURE URINEon 12-26-2021 CULTURE URINE Culture Observations : LIGHT GROWTH OF MIXED GENITAL VALERY. NO POTENTIAL PATHOGENS SEEN. Normal [facility] Comment on above: Performed By: #### P TT, PT #### [facility] [address] [place] [address] Dr. Norma Foss [facility]-16 SARS-CoV-2 (COVID-19) RNA NORMA+probe Ql (Unsp spec) Not detected Normal NOT DETECTED [facility] Comment on above: Result Comment: When [...] for this test is supported by the [place] of Health and Human Service's declaration that [...] Performed By: #### P TT, PT #### [facility] [address] [place] [address] Dr. Norma Foss DIRECT COOMBSon 12-26-2021 DIRECT SHRAVAN Negative Normal [facility] Comment on above: Performed By: #### P TT, PT #### [facility] [address] [place] [address] Dr. Norma Foss ER URINE PROFILEon 2 Bilirubin Ql (U) Negative Normal NEGATIVE [facility] Comment on above: Performed By: #### U MICRO, ERUR #### [facility] [address] [place] [address] Dr. Norma Foss Clarity (U) CLEAR Normal CLEAR [facility] Comment on above: Performed By: #### U MICRO, ERUR #### [facility] [address] [place] [address] Dr. Norma Foss Color (U) LT. YELLOW Normal YELLOW [facility] Comment on above: Performed By: #### U MICRO, ERUR #### [facility] [address] [place] [address] Dr. Norma RICHARDSOND A micrscopic examination will be performed if indicated. Normal [facility] Comment on above: Performed By: #### U MICRO, ERUR #### [facility] [address] [place] [address] Dr. Norma Foss Glucose Ql (U) Negative Normal NEGATIVE [facility] Comment on above: Performed By: #### U MICRO, ERUR #### [facility] [address] [place] [address] Dr. Norma Foss Hemoglobin Ql (U) SMALL Abnormal NEGATIVE [facility] Comment on above: Performed By: #### U MICRO, ERUR #### [facility] [address] [place] [address] Dr. Norma Foss Ketones Ql (U) Negative Normal NEGATIVE [facility] Comment on above: Performed By: #### U MICRO, ERUR #### [facility] [address] [address] [address] Norma Foss LEUKOCYTES TRACE Abnormal NEGATIVE [facility] Comment on above: Performed By: #### U MICRO, ERUR #### [facility] [address] [address] [address] Norma Foss Nitrite Ql (U) Negative Normal NEGATIVE [facility] Comment on above: Performed By: #### U MICRO, ERUR #### [facility] [address] [place] [address] Dr. Norma Foss pH (U) 5.5 [pH] Normal 5-9 [facility] Comment on above: Performed By: #### U MICRO, ERUR #### [facility] [address] [place] [address] Dr. Norma Foss SPEC GRAVITY 1.025 Normal 1.005-<=1.025 [facility] Comment on above: Performed By: #### U MICRO, ERUR #### [facility] [address] [place] [address] Dr. Norma Foss UA PROTEIN TRACE Normal NEGATIVE/ TRACE [facility] Comment on above: Performed By: #### U MICRO, ERUR #### [facility] [address] [place] [address] Dr. Norma Foss UR MICRO IND INDICATED Normal [facility] Comment on above: Performed By: #### U MICRO, ERUR #### [facility] [address] [place] [address] Dr. Norma Foss Urobilinogen Qn (U) 0.2 {Ivette'U}/dL Normal 0.2 - 1. 0 [facility] Comment on above: Performed By: #### U MICRO, ERUR #### [facility] [address] [place] [address] Dr. Norma Foss GI PANEL (PCR)on 12-26-2021 Adenovirus F 40/41 Not detected Normal NOT DETECTED [facility] Comment on above: Performed By: #### G IPANEL #### [facility] [address] [place] [address] Dr. Norma Foss Astrovirus Not detected Normal NOT DETECTED [facility] Comment on above: Performed By: #### G IPANEL #### [facility] [address] [place] [address] Dr. Norma Foss C. Diff toxin A/B Not detected Normal NOT DETECTED The [facility] Comment on above: Performed By: #### G IPANEL #### [facility] [address] [place] [address] Dr. Norma Foss Campylobacter Not detected Normal NOT DETECTED The [facility] Comment on above: Performed By: #### G IPANEL #### [facility] [address] [place] [address] Dr. Norma Foss Cryptosporidium Not detected Normal NOT DETECTED The [facility] Comment on above: Performed By: #### G IPANEL #### [facility] [address] [place] [address] Dr. Norma Foss Cyclos. Cayetanensis Not detected Normal NOT DETECTED The [facility] Comment on above: Performed By: #### G IPANEL #### [facility] [address] [place] [address] Dr. Norma Foss E. Coli O157 Not Applicable Normal Not Applicable The [facility] Comment on above: Performed By: #### G IPANEL #### [facility] [address] [place] [address] Dr. Norma Foss E. histolytica Not detected Normal NOT DETECTED The [facility] Comment on above: Performed By: #### G IPANEL #### [facility] [address] [place] [address] Dr. Norma Foss EAEC Not detected Normal NOT DETECTED The [facility] Comment on above: Performed By: #### G IPANEL #### [facility] [address] [place] [address] Dr. Norma Foss EIEC Not detected Normal NOT DETECTED The [facility] Comment on above: Performed By: #### G IPANEL #### [facility] [address] [place] [address] Dr. Norma Foss EPEC Not detected Normal NOT DETECTED The [facility] Comment on above: Performed By: #### G IPANEL #### [facility] [address] [address] [address] Norma Foss ETEC Not detected Normal NOT DETECTED The [facility] Comment on above: Performed By: #### G IPANEL #### [facility] [address] [address] [address] Norma Barajas Lamblia Not detected Normal NOT DETECTED The [facility] Comment on above: Performed By: #### G IPANEL #### [facility] [address] [address] [address] Norma BRISCOE CONTROLS PASSED Normal The [facility] Comment on above: Performed By: #### G IPANEL #### [facility] [address] [address] [address] Norma RUSSELL HEADER GI PANEL BACTERIA Normal T [facility] Comment on above: Performed By: #### G IPANEL #### [facility] [address] [address] [address] Norma FREITAS ECOLI GI PANEL DIARRHEAGENIC E.COLI / SHIGELLA Normal [facility] Comment on above: Performed By: #### G IPANEL #### [facility] [address] [place] [address] Dr. Norma FREITAS INFO SEE BELOW Normal [facility] Comment on above: Result Comment: EAEC - Enteroaggregative E. Coli EPEC- Enteropathogenic E. Coli ETEC- Enterotoxigenic E. Coli lt/st STEC- Shigella-like toxin-producing E. Coli stx1/stx2 EIEC- Shigella/Enteroinvasive E. Coli Performed By: #### G IPANEL #### [facility] [address] [place] [address] Dr. Norma FREITAS PARASITES GI PANEL PARASITES Normal [facility] Comment on above: Performed By: #### G IPANEL #### [facility] [address] [address] [address] Norma FREITAS VIRUS GI PANEL VIRUSES Normal The [facility] Comment on above: Performed By: #### G IPANEL #### [facility] [address] [place] [address] Dr. Norma Foss Norovirus GI/GII Not detected Normal NOT DETECTED The [facility] Comment on above: Performed By: #### G IPANEL #### [facility] [address] [place] [address] Dr. Norma Foss P. Shigelloides Not detected Normal NOT DETECTED The [facility] Comment on above: Performed By: #### G IPANEL #### [facility] [address] [place] [address] Dr. Norma Foss Rotavirus A Not detected Normal NOT DETECTED The [facility] Comment on above: Performed By: #### G IPANEL #### [facility] [address] [place] [address] Dr. Norma Foss Salmonella Not detected Normal NOT DETECTED The [facility] Comment on above: Performed By: #### G IPANEL #### [facility] [address] [place] [address] Dr. Norma Foss Sapovirus Not detected Normal NOT DETECTED The [facility] Comment on above: Performed By: #### G IPANEL #### [facility] [address] [place] [address] Dr. Norma Foss STEC Not detected Normal NOT DETECTED The [facility] Comment on above: Performed By: #### G IPANEL #### [facility] [address] [place] [address] Dr. Norma Foss Vibrio Not detected Normal NOT DETECTED The [facility] Comment on above: Performed By: #### G IPANEL #### [facility] [address] [place] [address] Dr. Norma Foss Vibrio Cholera Not detected Normal NOT DETECTED The [facility] Comment on above: Performed By: #### G IPANEL #### [facility] [address] [place] [address] Dr. Norma Foss Y. Enterocolitica Not detected Normal NOT DETECTED The [facility] Comment on above: Performed By: #### G IPANEL #### [facility] [address] [place] [address] Dr. Norma Foss HEMOGLOBIN AND HEMATOCRITon 08-11-2022 Hematocrit (Bld) [Volume fraction] 38.1 % Normal 36.0-48.0 [facility] Comment on above: Performed By: #### H GBHCT #### [facility] [address] [place] [address] Dr. Norma Foss Hemoglobin (Bld) [Mass/Vol] 12.4 g/dL Normal 12.0-16.0 [facility] Comment on above: Performed By: #### H GBHCT #### [facility] [address] [address] [address] Norma Foss PROF 14(COMP METB)on 022 Albumin [Mass/Vol] 4.0 g/dL Normal 3.4-5.0 [facility] Comment on above: Performed By: #### H STROPN, CMP #### [facility] [address] [place] [address] Dr. Norma Foss Albumin/Globulin [Mass ratio] 1.1 {ratio} Normal [facility] Comment on above: Performed By: #### H STROPN, CMP #### [facility] [address] [place] [address] Dr. Norma Foss ALP [Catalytic activity/Vol] 81 U/L Normal 46-116 [facility] Comment on above: Performed By: #### H STROPN, CMP #### [facility] [address] [place] [address] Dr. Norma Foss ALT [Catalytic activity/Vol] 20 U/L Normal 14-59 [facility] Comment on above: Performed By: #### H STROPN, CMP #### [facility] [address] [place] [address] Dr. Norma Foss Anion gap [Moles/Vol] 12.5 mmol/L Normal [facility] Comment on above: Performed By: #### H STROPN, CMP #### [facility] [address] [place] [address] Dr. Norma Foss AST [Catalytic activity/Vol] 16 U/L Normal 15-37 [facility] Comment on above: Performed By: #### H STROPN, CMP #### [facility] [address] [address] [address] Norma Foss Bilirubin [Mass/Vol] 0.4 mg/dL Normal 0.2-1.0 [facility] Comment on above: Performed By: #### H STROPN, CMP #### [facility] [address] [address] [address] Norma Foss Calcium [Mass/Vol] 9.3 mg/dL Normal 8.5-10.1 [facility] Comment on above: Performed By: #### H STROPN, CMP #### [facility] [address] [address] [address] Norma Foss Chloride [Moles/Vol] 98 mmol/L Normal 98-107 [facility] Comment on above: Performed By: #### H STROPN, CMP #### [facility] [address] [place] [address] Dr. Norma Foss CO2 [Moles/Vol] 27.4 mmol/L Normal 21.0-32.0 [facility] Comment on above: Performed By: #### H STROPN, CMP #### [facility] [address] [place] [address] Dr. Norma Foss Creatinine [Mass/Vol] 0.84 mg/dL Normal 0.55-1.02 [facility] Comment on above: Performed By: #### H STROPN, CMP #### [facility] [address] [place] [address] Dr. Norma Foss EGFR-AF TRINIDADIAN >60 Normal >=60 [facility] Comment on above: Performed By: #### H STROPN, CMP #### [facility] [address] [place] [address] Dr. Norma Foss EGFR-NON AF TRINIDADIAN >60 Normal >=60 [facility] Comment on above: Performed By: #### H STROPN, CMP #### [facility] [address] [place] [address] Dr. Norma Foss Globulin (S) [Mass/Vol] 3.4 g/dL Normal [facility] Comment on above: Performed By: #### H STROPN, CMP #### [facility] [address] [address] [address] Norma Foss Glucose [Mass/Vol] 190 mg/dL Critically high 74-106 T [facility] Comment on above: Performed By: #### H STROPN, CMP #### [facility] [address] [address] [address] Norma Foss Potassium [Moles/Vol] 4.2 mmol/L Normal 3.5-5.1 [facility] Comment on above: Performed By: #### H STROPN, CMP #### [facility] [address] [address] [address] Norma Foss Protein [Mass/Vol] 7.4 g/dL Normal 6.4-8.2 [facility] Comment on above: Performed By: #### H STROPN, CMP #### [facility] [address] [address] [address] Norma Foss Sodium [Moles/Vol] 134 mmol/L Critically low 136-145 [facility] Comment on above: Performed By: #### H STROPN, CMP #### [facility] [address] [address] [address] Norma Foss Urea nitrogen [Mass/Vol] 13.0 mg/dL Normal 7.0-18.0 [facility] Comment on above: Performed By: #### H STROPN, CMP #### [facility] [address] [address] [address] Norma Foss Urea nitrogen/Creatinine [Mass ratio] 15.4 mg/mg [facility] Comment on above: Performed By: #### H STROPN, CMP #### [facility] [address] [address] [address] Norma Foss PROTIMEon 12-26-2021 INR Coag (PPP) [Relative time] 0.99 {INR} [facility] Comment on above: Performed By: #### P TT, PT #### [facility] [address] [place] [address] Dr. Norma Foss INR GUIDELINES SEE BELOW Normal [facility] Comment on above: Result Comment: PRINCESS RED INR: 2.0 - 3.0 CONDITIONS NOT LISTED BELOW 2.5 - 3.5 FOR PROSTHETIC HEART VALVE REPLACEMENT 2.5 - 3.5 RECURRENT THROMBOSIS Performed By: #### P TT, PT #### [facility] [address] [place] [address] Dr. Norma Foss PT Coag (PPP) [Time] 10.7 s Normal 9.0-11.6 [facility] Comment on above: Performed By: #### P TT, PT #### [facility] [address] [place] [address] Dr. Norma Foss PTTon 12-26-2021 aPTT Coag (Bld) [Time] 25.0 s Normal 22.3-36.2 [facility] Comment on above: Performed By: #### P TT, PT #### [facility] [address] [place] [address] Dr. Norma Foss TROPONIN, HIGH SENSITIVITYon 12-26-2021 HSTROP 5.4 pg/mL Normal 4.0-51.3 The [facility] Comment on above: Result Comment: CUT- OFF POINTS HAVE BEEN ESTABLISHED BASED ON THE FOURTH UNIVERSAL DEFINITIONS OF MYOCARDIAL INFARCTION. THE UPPER REFERENCE LIMIT (URL) OF TROPONIN, DEFINED THE 99TH PERCENTILE OF cTnI DISTRIBUTION IN A REFERENCE POPULATION, HAS BEEN CONFIRMED THE DECISION THRESHOLD FOR [place] DIAGNOSIS. Performed By: #### H STROPN, CMP #### [facility] [address] [place] [address] Dr. Norma Foss TYPE AND SCREENon 12-26-2021 TYPE AND SCREEN Positive Normal The [facility] Comment on above: Performed By: #### P TT, PT #### [facility] [address] [place] [address] Dr. Norma Foss URINE MICROSCOPIC ONLYon BACTERIA TRACE Abnormal NONE SEEN The [facility] Comment on above: Performed By: #### P TT, PT #### [facility] [address] [place] [address] Dr. Norma Foss Bacteria identified Cx Nom (U) INDICATED Normal [facility] Comment on above: Performed By: #### P TT, PT #### [facility] [address] [place] [address] Dr. Norma Foss CAST SEEN Abnormal NONE SEEN The [facility] Comment on above: Performed By: #### P TT, PT #### [facility] [address] [place] [address] Dr. Norma Foss Crystals LM Nom (Urine sed) NONE SEEN Normal NONE SEEN The [facility] Comment on above: Performed By: #### P TT, PT #### [facility] [address] [place] [address] Dr. Norma Foss Epithelial cells LM Ql (Urine sed) MANY Abnormal NONE SEEN /RARE The [facility] Comment on above: Performed By: #### P TT, PT #### [facility] [address] [place] [address] Dr. Norma Foss HYALINE CAST FEW Normal The [facility] Comment on above: Performed By: #### P TT, PT #### [facility] [address] [place] [address] Dr. Norma Foss MUCOUS TRACE Abnormal NONE SEEN The [facility] Comment on above: Performed By: #### P TT, PT #### [facility] [address] [place] [address] Dr. Norma Foss RBC 2-5 Abnormal 0-2 The [facility] Comment on above: Performed By: #### P TT, PT #### [facility] [address] [place] [address] Dr. Norma Foss WBC 5-10 Abnormal NONE SEEN The [facility] Comment on above: Performed By: #### P TT, PT #### [facility] [address] [place] [address] Dr. Norma Foss Vital Signs Date Time Vital Sign Value Performing Clinician Umairi pacoy 10-17-2024 09: Body height 162.6 cm Luba Younger MD Work Phone: [facility] 10-17-2024 09: Body mass index (BMI) [Ratio] 30.73 kg/m2 Luba Younger MD Work Phone: [facility] 10-17-2024 09:20-0400 Body weight 81.19 kg Luba Younger MD Work Phone: [facility] 10-17-2024 09:20-0400 Diastolic blood pressure 84 mm[Hg] Luba Younger MD Work Phone: [facility] 10-17-2024 09:20-0400 Heart rate 65 /min Luba Younger MD Work Phone: [facility] 10-17-2024 09:20-0400 SaO2% (BldA) [Mass fraction] 95 % Luba Younger MD Work Phone: [facility] 10-17-2024 09:20-0400 Systolic blood pressure 138 mm[Hg] Luba Younger MD Work Phone: [facility] 03-29-2024 09:05-0500 Body height 162.6 cm Luba Younger MD Work Phone: [facility] 03-29-2024 09:05-0500 Body mass index (BMI) [Ratio] 30.38 kg/m2 Luba Younger MD Work Phone: [facility] 03-29-2024 09:05-0500 Body weight 80.29 kg Luba Younger MD Work Phone: [facility] 03-29-2024 09:05-0500 Diastolic blood pressure 84 mm[Hg] Luba Younger MD Work Phone: [facility] 03-29-2024 09:05-0500 Heart rate 71 /min Luba Younger MD Work Phone: [facility] 03-29-2024 09:05-0500 SaO2% (BldA) [Mass fraction] 97 % Luba Younger MD Work Phone: [facility] 03-29-2024 09:05-0500 Systolic blood pressure 138 mm[Hg] Luba Younger MD Work Phone: [facility] Healthcare Encounters Encounter Date Encounter Type Care Provider Facility Start: 01-10-2025 End: 01-10-2025 Iron Espitia [employer] Work Phone: [facility] Start: 01-10-2025 End: 01-10-2025 Bamboo flowsheet Nelsy Espitia [employer] Work Phone: [facility] Start: 01-10-2025 End: 01-10-2025 Office outpatient visit 15 minutes Nelsy Espitia [employer] Work Phone: [facility] Comment on above: Seborrheic keratosis (Primary Dx); Lentigines; Angioma of skin; Melanocytic nevus of right lower extremity; Melanocytic nevus of left lower extremity; Melanocytic nevus of trunk Start: 01-10-2025 End: 01-10-2025 ambulatory NELSY ESPITIA Not Available Start: 10-17-2024 End: 10-17-2024 Bamboo flowsheet Luba Younger MD Work Phone: [facility] Start: 10-17-2024 End: 10-17-2024 Bamboo flowsasif Younger MD Work Phone: [facility] Start: 10-17-2024 End: 10-17-2024 Office outpatient visit 25 minutes Luba Younger MD Work Phone: [facility] Comment on above: Abnormal glucose brenna erance test; Chronic obstructive pulmonary disease, unspecified; Simple chronic bronchitis (CMS/HCC); Type 2 diabetes mellitus with diabetic cataract (CMS/HCC); Type 2 diabetes mellitus with other specified complication; Hyperlipidemia, unspecified (CMS/HCC); Primary pulmonary hypertension (CMS/HCC) Start: 10-17-2024 End: 10-17-2024 ambulatory LUBA YOUNGER Not Available Start: 03-29-2024 End: 03-29-2024 Bamboo flowsasif Younger MD Work Phone: [facility] Start: 03-29-2024 End: 03-29-2024 Bamboo flowsasif Younger MD Work Phone: [facility] Start: 03-29-2024 End: 03-29-2024 Assay of hemosiderin, quant Luba Younger MD Work Phone: [facility] Start: 03-29-2024 End: 03-29-2024 Patient encounter procedure Luba Younger MD Work Phone: [facility] Comment on above: Routine general [facility] (Primary Dx); Abnormal glucose tolerance test; Benign essential hypertension ([facility]); Medicare annual wellness visit, subsequent; Hyperlipidemia, unspecified hyperlipidemia type ([facility]); Impaired glucose tolerance; Seasonal allergic rhinitis, unspecified trigger; Essential hypertension ([facility]); Murmur, cardiac Start: 03-29-2024 End: 03-29-2024 ambulatory LUBA YOUNGER Not Available Start: 03-09-2024 End: 03-09-2024 Refill Luba Younger MD Work Phone: [facility] Comment on above: Essential hypertensi on ([facility]) Start: 02-23-2024 End: 02-23-2024 Telephone encounter Zamzam GARCIA Work Phone: [facility] Start: 01-11-2024 End: 01-11-2024 Bamboo flowsheet Nelsy Espitia [employer] Work Phone: [facility] Start: 01-11-2024 End: 01-11-2024 Bamboo flowsheet Nelsy aWlkerer [employer] Work Phone: [facility] Start: 01-11-2024 End: 01-11-2024 Office outpatient visit 15 minutes Nelsy Espitia [employer] Work Phone: [facility] Comment on above: Lentigines; Angioma of skin; Seborrheic keratosis; Melanocytic nevus of right lower extremity; Melanocytic nevus of left lower extremity; Stasis dermatitis of both legs Start: 03-16-2023 Patient encounter procedure Nelsy Espitia [employer] Work Phone: [facility] Start: 02-19-2022 Encounter for preprocedural laboratory examination DR AIDAN MARY [facility] Start: 02-19-2022 End: 02-19-[address] AIDAN MARY Facility:[facility] Start: 02-15-2022 End: 02-16-[address] AIDAN MARY Facility:[facility] Start: 02-15-2022 End: 02-16-2022 Encounter for preprocedural laboratory examination DR AIDAN MARY Facility:[facility] Start: 02-07-2022 End: 02-08-[address] LUBA YOUNGER Facility:[facility] Start: 12-26-2021 End: 12-27-[address] LUBA YOUNGER Facility:[facility] Procedures Date Procedure Procedure Detail Performing Clinician Start: 10-17-2024 Hemoglobin glycosylated a1c Luba Younger MD Work Phone: Start: 03-29-2024 Complete blood count with white cell differential, automated Luba Younger MD Work Phone: Start: 03-29-2024 Comprehensive metabo lic panel Luba Younger MD Work Phone: Start: 03-29-2024 Lipid panel Luba Soler MD Work Phone: Start: 03-29-2024 Urine albumin quantitative Luba Younger MD Work Phone: Start: 03-29-2024 Hemoglobin glycosylated a1c Luba Younger MD Work Phone: Start: 02-19-2022 Colonoscopy Nelsy lentz [employer] Work Phone: Plan of Treatment Date Care Activity Detail Author Start: 02-20-2032 Screening for malign ant neoplasm of colon [facility] Start: 01-11-2026 End: 01-11-2026 Patient encounter procedure 01/11/2026 9:25 AM EDT Office Visit [facility] [address] [place] [address] Nelsy Espitia, [employer] CHAIR [address] [place] [address] [facility] Start: 03-29-2025 Medicare Annual Wellness (AWV) Medicare Annual Wellness (AWV) [facility] Start: 03-29-2025 Urine screening for protein Diabetes: Urine Protein Screening [facility] Start: 03-20-2025 End: 03-20-2025 Patient encounter procedure 03/20/2025 9:00 AM EST [facility] [place] [facility] [address] [facility] [address] [place] [address] Luba Younger MD [address] [facility] [address] [place] [address] [facility] Start: 01-17-2025 Hemoglobin A1c measurement Diabetes: Hemoglobin A1C [facility] Start: 01-16-2025 Influenza vaccination [facility] Start: 01-10-2025 End: 01-10-2025 Patient encounter procedure [facility] Comment on above: Arrived Start: 10-17-2024 End: 10-17-2024 Patient encounter procedure [facility] Comment on above: Arrived Start: 10-16-2024 Screening for malign ant neoplasm of colon FIT-DNA [facility] Start: 06-29-2024 Hemoglobin A1c measurement Diabetes: Hemoglobin A1C [facility] Start: 05-18-2024 Influenza vaccination Influenza Vacc ine (#1) [facility] Comment on above: Postponed from 01/16 (Patient Refused) Start: 03-29-2024 End: 03-29-2026 Heart Transthoracic Transthoracic Echo (TTE) Complete Echocardiography Routine Murmur, cardiac Expected: 03/29/2024 (Approximate), Expires: 03/29/2026 [facility] Work Phone: Comment on above: Expected: 03/29/2024 (Approximate), Expires: 03/29/2026 Start: 03-24-2024 End: 03-24-2024 Patient encounter procedure 03/24/2024 2:30 PM EST Office Visit [facility] [address] [facility] [address] [place] [id number] Luba Younger MD [address] [facility] [address] [place] [address] [facility] Start: 03-16-2024 Medicare Annual Wellness (AWV) Medicare Annual Wellness (AWV) [facility] Start: 03-16-2024 Urine screening for protein Diabetes: Urine Protein Screening [facility] Start: 01-17-2024 Influenza vaccination Influenza Vacc ine (#1) [facility] Start: 01-11-2024 End: 01-11-2024 Patient encounter procedure 01/11/2024 10:35 AM EDT [facility] [address] [place] [address] Nelsy Espitia [employer] [address] [place] [address] Arrived [facility] Comment on above: Arrived Start: 06-16-2023 Hemoglobin A1c measurement Diabetes: Hemoglobin A1C [facility] Start: 02-01-1958 Glaucoma screening Diabetes: R etinopathy Screening [facility] Start: 1950 Screening for malign ant neoplasm of colon [facility] Immunizations Immunization Date Immunization Notes Care Provider Fa cility 11-25-2022 tetanus toxoid, redu yonathan diphtheria toxoid, and acellular pertussis vaccine, adsorbed Nelsy Espitia [employer] Work Phone: [facility] 01-23-2021 pneumococcal conjuga te vaccine, 13 valent Nelsy Espitia [employer] Work Phone: [facility] 12-25-2020 pneumococcal conjuga te vaccine, 13 valent Nelsy Espitia [employer] Work Phone: [facility] 12-24-2019 pneumococcal polysaccharide vaccine, 23 valent Nelsy Espitia [employer] Work Phone: [facility] 06-06-2015 zoster vaccine, live Nelsy Espitia [employer] Work Phone: [facility] Payers Date Payer Category Payer [employer] ( [employer] others) [employer] [id number] 2022-Present [address] [place] [address] [id number] 2022 () [id number] 2022 [employer] ( [employer] others) [id number] 2013 Medicare [id number] 1959 [employer] ( and others) [id number] 1959 Medicare [id number] 1948 Unknown [id number] 1948 Unknown [id number] 1948 Unknown [id number] 1948 Unknown [id number] 1948 Unknown [id number] 1948 Unknown [id number] 1948 Unknown [id number] Social History Date Type Detail Facility Start: 03-03-2023 Tobacco smoking stat [facility] Ex-smoker [facility] History of tobacco use Current smoker [facility] History of tobacco use Cigarette Smoker [facility] Start: 03-03-2023 Tobacco use and exposure Smoke less tobacco non-user [facility] Start: 01-11-2024 End: 01-10-2025 Alcoholic beverage intake Current drinker of alcohol (finding) [facility] Start: 01-11-2024 End: 10-17-2024 History of Social function [facility] Start: 01-11-2024 End: 10-17-2024 Tobacco use panel [facility] Start: 03-03-2023 Tobacco Comment Last smoked: 5-10 ye ars [facility] Start: 1950 Sex assigned at Not on file [facility] Start: 10-22-2023 Alcoholic beverage intake [facility]er [facility] Functional Status Date Assessment Result Facility 10-17-2024 Patient Health Quest ionnaire 2 item (PHQ-2) [Reported] [facility] Clinical Notes 01-11-2024 to 01-10-2025 SHIRLEY Linton - 01/10/2025 9:50 AM Juan Younger MD - 10/17/2024 9:52 AM Juan Younger MD - 10/17/2024 9:39 AM Juan Younger MD - 10/17/2024 9:39 AM EDT Note Date & Type Note Facility 01-10-2025 History of Presen t illness Narrative Skin Check Location: Patient requests a full body skin examination Dermatologic history: no history of skin cancer, no history of atypical moles, no family history of melanoma Last visit: 1 year ago Established patient All pertinent medical history, medications, and allergies were reviewed. General Exam: alert, oriented to person, place, and time, normal affect, well appearing Unaccompanied Scalp, Examined , exam limited by hair Right leg Examined Head, Face Examined Left leg Examined Neck Examined Right foot Examined Chest Examined Left foot Examined Back Examined Buttocks Examined Patient kept underwear on Abdomen Examined Digits,nails: Examined Right arm Examined Left arm Examined Lymphatics: Not examined Hands Examined Skin Exam 1. SEBORRHEIC KERATOSIS Generalized Stuck on verrucous, bui-brown papules and plaques. Patient was counseled regarding these benign growths. Removal is normally not necessary, but they may be removed if they are symptomatic or for cosmetic reasons. 2. LENTIGINES Generalized Scattered bui macules in sun-exposed areas. The patient was informed that lentigines are benign pigmented lesions that occur on sun-exposed and sun-damaged skin. No treatment is necessary. Recommended regular use of broad spectrum sunscreen SPF 30 or higher 3. ANGIOMA OF SKIN Trunk Scattered walker-red papule(s). The patient was informed that angiomas are benign growths on the the skin. No treatment is necessary. 4. MELANOCYTIC NEVUS OF RIGHT LOWER EXTREMITY Right Leg Scattered benign appearing, regular brown to light brown melanocytic papules and macules with similar morphology Counseled regarding these benign growths. Rarely, a nevus can develop into malignant melanoma, so any changing nevi should be promptly re-evaluated. 5. MELANOCYTIC NEVUS OF LEFT LOWER EXTREMITY Left Leg Scattered benign appearing, regular brown to light brown melanocytic papules and macules with similar morphology Counseled regarding these benign growths. Rarely, a nevus can develop into malignant melanoma, so any changing nevi should be promptly re-evaluated. 6. MELANOCYTIC NEVUS OF TRUNK Generalized Scattered benign appearing, regular brown to light brown melanocytic papules and macules with similar morphology Counseled regarding these benign growths. Rarely, a nevus can develop into malignant melanoma, so any changing nevi should be promptly re-evaluated. Next Visit: 1 year documented in this encounter [facility] 10-17-2024 History of Presen t illness Narrative Associated Problem(s): Primary pulmonary hypertension (CMS/HCC) Added Jardiance Associated Problem(s): Hyperlipidemia, unspecified (CMS/HCC) This is a chronic medical condition that is stable since last assessment. No changes in treatment are suggested at this time. Continue Current meds. Associated Problem(s): Type 2 diabetes mellitus with diabetic cataract ([facility]) A1c is 7.3 Associated Problem(s): Type 2 diabetes mellitus with other specified complication No Tobacco use Follow ADA 1800 diet low carbohydrate Continue Med Compliance Goal LDL less than 100 Goal BP 130/80 Goal HgbA1c < 7.0% Monitor Feet, monitor for infection Needs Exercise Yearly eye exams Prior to your visit today we reviewed your chart and outlined testing and treatment needed for your care. Reviewed poissble complications of diabetes including, loss of vision, kidney failure and increased risk of heart attacks and stroke. We made recommendations on how to control your blood sugars, and minimize your risk of these complications. We discussed your current barriers to a healthy living and importance of healthy diet and exercise. Associated Problem(s): Chronic obstructive pulmonary disease, unspecified This is a chronic medical condition that is stable since last assessment. No changes in treatment are suggested at this time. Continue Current meds. Images from the original note were not included. HPI impaired glucose Additional comments: Last A1c was 6.9 Last edited by Kelly Sheikh MA on 10/17/2024 9:17 AM. Subjective Patient ID: Veronica Salinas is a 74 y.o. female who presents for impaired glucose (Last A1c was 6.9) and Hypertension. Pt has no concerns Hypertension This is a chronic problem. The current episode started more than 1 year ago. The problem has been gradually improving since onset. The problem is controlled. Pertinent negatives include no chest pain. There are no associated agents to hypertension. Risk factors for coronary artery disease include obesity and post-menopausal state. Past treatments include beta blockers and calcium channel blockers. The current treatment provides significant improvement. There are no compliance problems. Current Outpatient Medications on File Prior to Visit Medication Sig Dispense Refill cetirizine (ZyrTEC) 10 MG tablet Take 1 tablet (10 mg) by mouth Daily 100 tablet 3 losartan (Cozaar) 50 MG tablet Take 1 tablet (50 mg) by mouth Daily 100 tablet 3 metoprolol tartrate (Lopressor) 25 MG tablet TAKE ONE-HALF (1/2) TABLET TWICE A DAY WITH FOOD 90 tablet 3 No current facility-administered medications on file prior to visit. I have reviewed and reconciled the history and medication list with the patient today. Allergies Allergen Reactions Penicillin G Unknown Penicillin G Sodium Unknown Social History Tobacco Use Smoking status: Former Types: Cigarettes Smokeless tobacco: Never Tobacco comments: Last smoked: 5-10 years Substance Use Topics Alcohol use: Yes Drug use: Defer Family History Problem Relation Name Age of Onset Hypertension Mother Heart disease Mother Hypertension Father Heart disease Father Past Medical History: Diagnosis Date Allergic Cataract Colon polyp 02/2022 COPD (chronic obstructive pulmonary disease) ([facility]) Diverticulosis 12/26/2021 Moderate Colonic Diverticulosis without evidence of acute diverticulosis. Wall thickening of the mid sigmoid colon possibly inflammatory in nature. Elevated cholesterol ([facility]) History of being hospitalized 08/2019 Pneumonia, HTN [facility] Hypertension ([facility]/HCC) Sigmoid diverticulosis 02/2022 Past Surgical History: Procedure Laterality Date APPENDECTOMY 1965 CATARACT EXTRACTION Bilateral 2018 Left 01/26/2019, Right 2019 COLONOSCOPY W/ POLYPECTOMY 02/19/2022 OTHER SURGICAL HISTORY 12/27/2021 [facility] GI Bleed/ Colitis/ UTI Visit Vitals BP 138/84 Pulse 65 Ht 5' 4 Wt 179 lb SpO2 95% BMI 30.73 kg/m Smoking Status Former BSA 1.92 m Review of Systems Constitutional: Negative for chills, fatigue, fever and unexpected weight change. Respiratory: Negative for cough. Cardiovascular: Negative for chest pain. Gastrointestinal: Negative for abdominal pain, blood in stool, constipation, diarrhea, nausea and vomiting. Genitourinary: Negative for dysuria, enuresis, frequency and hematuria. Musculoskeletal: Negative for back pain. Neurological: Negative for dizziness, tremors, syncope, facial asymmetry and speech difficulty. Psychiatric/Behavioral: Negative for agitation, behavioral problems, confusion and dysphoric mood. The patient is not nervous/anxious. Objective Physical Exam Vitals reviewed. Constitutional: General: She is not in acute distress. Appearance: Normal appearance. HENT: Head: Normocephalic. Right Ear: Tympanic membrane normal. Left Ear: Tympanic membrane normal. Neck: Vascular: No carotid bruit. Cardiovascular: Rate and Rhythm: Normal rate and regular rhythm. Heart sounds: Murmur heard. Pulmonary: Effort: Pulmonary effort is normal. No respiratory distress. Breath sounds: Normal breath sounds. Lymphadenopathy: Cervical: No cervical adenopathy. Neurological: General: No focal deficit present. Mental Status: She is alert. Mental status is at baseline. She is disoriented. Psychiatric: Mood and Affect: Mood normal. Behavior: Behavior normal. Office Visit on 10/17/2024 Component Date Value Ref Range Status Hemoglobin A1C 10/17/2024 7.3 Final Assessment/Plan Problem List Items Addressed This Visit Chronic obstructive pulmonary disease, unspecified This is a chronic medical condition that is stable since last assessment. No changes in treatment are suggested at this time. Continue Current meds. Hyperlipidemia, unspecified (CMS/HCC) This is a chronic medical condition that is stable since last assessment. No changes in treatment are suggested at this time. Continue Current meds. Type 2 diabetes mellitus with diabetic cataract (CMS/HCC) A1c is 7.3 Relevant Medications empagliflozin (Jardiance) 25 MG Type 2 diabetes mellitus with other specified complication No Tobacco use Follow ADA 1800 diet low carbohydrate Continue Med Compliance Goal LDL less than 100 Goal BP 130/80 Goal HgbA1c < 7.0% Monitor Feet, monitor for infection Needs Exercise Yearly eye exams Prior to your visit today we reviewed your chart and outlined testing and treatment needed for your care. Reviewed poissble complications of diabetes including, loss of vision, kidney failure and increased risk of heart attacks and stroke. We made recommendations on how to control your blood sugars, and minimize your risk of these complications. We discussed your current barriers to a healthy living and importance of healthy diet and exercise. Relevant Medications empagliflozin (Jardiance) 25 MG Primary pulmonary hypertension (CMS/HCC) Added Jardiance Other Visit Diagnoses Abnormal glucose tolerance test Relevant Orders POCT Glycated hemoglobin, total (Completed) No follow-ups on file. documented in this encounter [facility] 03-29-2024 History of Presen t illness Narrative Associated Problem(s): Essential hypertension (CMS/HCC) Our specific goals, for your hypertension, is to keep your blood pressure less than 140/90, and the importance of weight control. We made recommendations on how to control your blood pressure, and minimize your risk of these copmplications. We also discussed your current barriers to a healthy living and importance of healthy diet and exercise. Prior to your visit today we have reviewed your chart and formed a plan to assist with providing you the best possible care. We reviewed the possible complications of hypertension including, stroke, heart failure and kidney impairment. In addition, we discussed your medications, the importance of taking them as prescribed. DASH diet handouts Associated Problem(s): Medicare annual wellness visit, subsequent Colonoscopy every 10 years or Cologuard every 3 years ages 50-75 Flu Vaccine yearly Pneumovax and Prevnar Mammo yearly for women and PSA yearly for men Labs/Screening yearly to rule out Diabetes, Chronic Kidney disease and liver disease Hepatitis Screen forat risk populations Shingles vaccine after 65 if indicated Tetanus Vaccine every 10 years Lipids yearly under the age of 75 If Smoking history: one time CT scan of chest and Ultrasound of Aorta to screen for Anuerysm Images from the original note were not included. Subjective : Chief Complaint: Veronica Salinas is an 74 y.o. female here for an annual wellness visit. A1c 7.3 to 6.9 I have reviewed and reconciled the history and medication list with the patient today. Current Outpatient Medications Medication Sig Dispense Refill cetirizine (ZyrTEC) 10 MG tablet Take 1 tablet (10 mg) by mouth Daily 100 tablet 3 losartan (Cozaar) 50 MG tablet Take 1 tablet (50 mg) by mouth Daily 100 tablet 3 metoprolol tartrate (Lopressor) 25 MG tablet TAKE ONE-HALF (1/2) TABLET TWICE A DAY WITH FOOD 90 tablet 3 No current facility-administered medications for this visit. Review of Systems Constitutional: Negative for chills, fatigue, fever and unexpected weight change. Respiratory: Negative for cough. Cardiovascular: Negative for chest pain. Gastrointestinal: Negative for abdominal pain, blood in stool, constipation, diarrhea, nausea and vomiting. Genitourinary: Negative for dysuria, enuresis, frequency and hematuria. Musculoskeletal: Negative for back pain. Neurological: Negative for dizziness, tremors, syncope, facial asymmetry and speech difficulty. Psychiatric/Behavioral: Negative for agitation, behavioral problems, confusion and dysphoric mood. The patient is not nervous/anxious. List of current healthcare providers: Patient Care Team: Luba Younger MD as PCP - General (Family Medicine) Luba Younger MD as PCP - [facility] [employer] Medicare Annual Visit Over the past 2 weeks, how often have you been bothered by any of the following problems? Little interest or pleasure in doing things: Not at all Feeling down, depressed, or hopeless: Not at all Patient Health Questionnaire-2 Score: 0 Garay Fall Risk History of Falling, Immediate or Within 3 Months: No Health Risk Assessment Form Do you need help eating, bathing, using the toilet, dressing, or getting around your home?: No Can you prepare your own meals?: Yes Can you do your own housework without help?: Yes Can you shop for groceries or clothes without help?: Yes Do you exercise for about 20 minutes 3 or more days a week?: Yes How confident are you that you can control and manage most of your health problems?: Very confident Can you mange your money, credit cards and accounts, pay bills and taxes?: Yes Vision Screening: Yes, no gross abnormalities Hearing Screening: Yes, no gross abnormalities Cognitive Screening Self Assessment: No overt cognitive deficiency is apparent by direct observation Three Word Registration: Apurva Sanchez, Finger Clock Drawing: Normal Clock - 2 Three Word Recall: 1/3 words correct - 1 Total Score (0-5 Points): 3 Pain Assessment Pain Score: 0 - No pain Advance Care Planning Do you have a living will?: No Do you have a medical power of deputy county attorney?: No Objective : BP 138/84 Pulse 71 Ht 5' 4 Wt 177 lb SpO2 97% BMI 30.38 kg/m No results found. Physical Exam Vitals reviewed. Constitutional: General: She is not in acute distress. Appearance: Normal appearance. HENT: Head: Normocephalic. Right Ear: Tympanic membrane normal. Left Ear: Tympanic membrane normal. Nose: Nose normal. Mouth/Throat: Mouth: Mucous membranes are moist. Pharynx: Oropharynx is clear. Cardiovascular: Rate and Rhythm: Normal rate and regular rhythm. Heart sounds: Murmur heard. Pulmonary: Effort: Pulmonary effort is normal. No respiratory distress. Breath sounds: Normal breath sounds. Abdominal: General: Bowel sounds are normal. Palpations: Abdomen is soft. Lymphadenopathy: Cervical: Cervical adenopathy present. Skin: General: Skin is warm and dry. Neurological: General: No focal deficit present. Mental Status: She is alert and oriented to person, place, and time. Psychiatric: Mood and Affect: Mood normal. Behavior: Behavior normal. Assessment/Plan : The following health maintenance schedule was reviewed with the patient and provided in printed form in the after visit summary: Health Maintenance Topic Date Due Diabetes: Retinopathy Screening Never done Diabetes: Urine Protein Screening 03/16/2024 Influenza Vaccine (1) 05/18/2024 (Originally 01/17/2024) Diabetes: Hemoglobin A1C 06/29/2024 Medicare Annual Wellness (AWV) 03/29/2025 Pneumococcal Vaccine: 65+ Years Completed Mammogram Discontinued Colorectal Cancer Screening Discontinued Office Visit on 03/29/2024 Component Date Value Ref Range Status Hemoglobin A1C 03/29/2024 6.9 Final Advance Care Planning Patient willing to discuss ACP. If in place, renew periodically. If not in place, recommend obtaining ACP. Assessment/Plan Problem List Items Addressed This Visit Essential hypertension (CMS/HCC) Our specific goals, for your hypertension, is to keep your blood pressure less than 140/90, and the importance of weight control. We made recommendations on how to control your blood pressure, and minimize your risk of these copmplications. We also discussed your current barriers to a healthy living and importance of healthy diet and exercise. Prior to your visit today we have reviewed your chart and formed a plan to assist with providing you the best possible care. We reviewed the possible complications of hypertension including, stroke, heart failure and kidney impairment. In addition, we discussed your medications, the importance of taking them as prescribed. DASH diet handouts Relevant Medications losartan (Cozaar) 50 MG tablet Hyperlipidemia (CMS/HCC) Relevant Orders CBC and differential Comprehensive metabolic panel Lipid panel Impaired glucose tolerance Relevant Orders CBC and differential Microalbumin / creatinine urine ratio POCT Glycated hemoglobin, total (Completed) Seasonal allergic rhinitis Relevant Medications cetirizine (ZyrTEC) 10 MG tablet Medicare annual wellness visit, subsequent Colonoscopy every 10 years or Cologuard every 3 years ages 50-75 Flu Vaccine yearly Pneumovax and Prevnar Mammo yearly for women and PSA yearly for men Labs/Screening yearly to rule out Diabetes, Chronic Kidney disease and liver disease Hepatitis Screen forat risk populations Shingles vaccine after 65 if indicated Tetanus Vaccine every 10 years Lipids yearly under the age of 75 If Smoking history: one time CT scan of chest and Ultrasound of Aorta to screen for Anuerysm Relevant Orders CBC and differential Comprehensive metabolic panel Lipid panel Microalbumin / creatinine urine ratio Murmur, cardiac Relevant Orders Transthoracic Echo (TTE) Complete Other Visit Diagnoses Routine general medical examination at health care facility - Primary Abnormal glucose tolerance test Relevant Orders Comprehensive metabolic panel Orders Placed This Encounter Procedures CBC and differential Standing Status: Future Number of Occurrences: 1 Standing Expiration Date: 03/29/2025 Order Specific Question: Print requisition? Answer: No Comprehensive metabolic panel Standing Status: Future Number of Occurrences: 1 Standing Expiration Date: 03/29/2025 Order Specific Question: Print requisition? Answer: No Lipid panel Standing Status: Future Number of Occurrences: 1 Standing Expiration Date: 03/29/2025 Microalbumin / creatinine urine ratio Standing Status: Future Number of Occurrences: 1 Standing Expiration Date: 03/29/2025 Order Specific Question: Print requisition? Answer: No POCT Glycated hemoglobin, total Transthoracic Echo (TTE) Complete Standing Status: Future Number of Occurrences: 1 Standing Expiration Date: 03/29/2026 Order Specific Question: Reason for exam: Answer: murmur Electronically signed by Luba Younger MD on March 29, 2024 documented in this encounter [facility] 03-09-2024 Telephone encounter Note Metoprolol sent. [facility] 03-09-2024 Miscellaneous Notes Metoprolol sent. documented in this encounter [facility] 02-23-2024 Telephone encounter Note Pt called to verify medications had been sent in, advised her that they were sent yesterday to [facility]. She voiced understanding. [facility] Work Phone: 02-23-2024 Miscellaneous Notes Pt called to verify medications had been sent in, advised her that they were sent yesterday to [facility]. She voiced understanding. documented in this encounter [facility] 01-11-2024 History of Presen t illness Narrative Skin Check Location: Patient requests a full body skin examination Dermatologic history: no history of skin cancer, no history of atypical moles, no family history of melanoma Last visit: 1 year ago Established patient Rash Location: ankles/feet Duration: years Severity: moderate Quality: denies itch, denies burning Modifying Factors: none Associated symptoms: darkening spots Current treatments: castor oil and tea leaf, states that her daughter made this and says it lightened the spots. PCP says it is just old, blood, states that it was from hanging her feet over the bed. All pertinent medical history, medications, and allergies were reviewed. General Exam: alert , oriented to person, place, and time , normal affect, well appearing Unaccompanied Scalp, Examined , exam limited by hair Right leg Examined Head, Face Examined Left leg Examined Neck Examined Right foot Examined Chest Examined Left foot Examined Back Examined Buttocks Examined Abdomen Examined Digits,nails: Examined Right arm Examined Patient wearing nail [place], Denies dark streaks on toenails Left arm Examined Lymphatics: Not examined Hands Examined 1. Lentigines Scattered bui macules in sun-exposed areas. The patient was informed that lentigines are benign pigmented lesions that occur on sun-exposed and sun-damaged skin. No treatment is necessary. Recommended regular use of broad spectrum sunscreen SPF 30 or higher 2. Angioma of skin Trunk Scattered walker-red papule(s). The patient was informed that angiomas are benign growths on the the skin. No treatment is necessary. 3. Seborrheic keratosis Stuck on verrucous, bui-brown papules and plaques. Patient was counseled regarding these benign growths. Removal is normally not necessary, but they may be removed if they are symptomatic or for cosmetic reasons. 4. Melanocytic nevus of right lower extremity Right Leg Scattered benign appearing, regular brown to light brown melanocytic papules and macules with similar morphology Counseled regarding these benign growths. Rarely, a nevus can develop into malignant melanoma, so any changing nevi should be promptly re-evaluated. 5. Melanocytic nevus of left lower extremity Left Leg Scattered benign appearing, regular brown to light brown melanocytic papules and macules with similar morphology Counseled regarding these benign growths. Rarely, a nevus can develop into malignant melanoma, so any changing nevi should be promptly re-evaluated. 6. Stasis dermatitis of both legs Left Ankle - Anterior, Left Foot - Anterior, Right Ankle - Anterior, Right Foot - Anterior Dark scaly plaques in areas of edema The patient was informed that stasis dermatitis is a chronic rash on the lower legs due to swelling often caused by poor circulation. The patient was instructed to keep the legs elevated when seated, avoid standing for long periods of time, and to wear compression stockings. Notify clinic if failing to improve despite treatment. Next Visit: 1 year skin check documented in this encounter [facility] Evaluation note Diagnosis Routine general medical examination at health care facility- Primary Routine general medical examination at a [facility] Benign essential hypertension (CMS/HCC) Essential hypertension, benign Abnormal glucose tolerance test Impaired glucose tolerance test Medicare annual wellness visit, subsequent Hyperlipidemia, unspecified hyperlipidemia type (CMS/HCC) Acute cough Essential hypertension (CMS/HCC) Unspecified essential hypertension documented in this encounter [facility]* Diagnosis Routine general medical examination at health care facility- Primary Routine general medical examination at a [facility] Benign essential hypertension (CMS/HCC) Essential hypertension, benign Abnormal glucose tolerance test Impaired glucose tolerance test Medicare annual wellness visit, subsequent Hyperlipidemia, unspecified hyperlipidemia type (CMS/HCC) Acute cough Routine general medical examination at health care facility- Primary Routine general medical examination at a health care facility Abnormal glucose tolerance test Impaired glucose tolerance test Benign essential hypertension (CMS/HCC) Essential hypertension, benign Medicare annual wellness visit, subsequent Hyperlipidemia, unspecified hyperlipidemia type (CMS/HCC) Impaired glucose tolerance Impaired glucose tolerance test Seasonal allergic rhinitis, unspecified trigger Essential hypertension (CMS/HCC) Unspecified essential hypertension Murmur, cardiac Undiagnosed cardiac murmurs documented in this encounter [facility]* Diagnosis Lentigines Angioma of skin Seborrheic keratosis Melanocytic nevus of right lower extremity Melanocytic nevus of left lower extremity Stasis dermatitis of both legs documented in this encounter [facility]* Diagnosis Routine general medical examination at health care facility- Primary Routine general medical examination at a health care facility Benign essential hypertension (CMS/HCC) Essential hypertension, benign Abnormal glucose tolerance test Impaired glucose tolerance test Medicare annual wellness visit, subsequent Hyperlipidemia, unspecified hyperlipidemia type (CMS/HCC) Acute cough Routine general medical examination at health care facility- Primary Routine general medical examination at a health care facility Abnormal glucose tolerance test Impaired glucose tolerance test Benign essential hypertension (CMS/HCC) Essential hypertension, benign Medicare annual wellness visit, subsequent Hyperlipidemia, unspecified hyperlipidemia type (CMS/HCC) Impaired glucose tolerance Impaired glucose tolerance test Seasonal allergic rhinitis, unspecified trigger Essential hypertension (CMS/HCC) Unspecified essential hypertension Murmur, cardiac Undiagnosed cardiac murmurs Abnormal glucose tolerance test Impaired glucose tolerance test Chronic obstructive pulmonary disease, unspecified Simple chronic bronchitis (CMS/HCC) Simple chronic bronchitis Type 2 diabetes mellitus with diabetic cataract (CMS/HCC) Type II or unspecified type diabetes mellitus with ophthalmic manifestations, not stated as uncontrolled Type 2 diabetes mellitus with other specified complication Hyperlipidemia, unspecified (CMS/HCC) Primary pulmonary hypertension (CMS/HCC) Primary pulmonary hypertension documented in this encounter [facility] Diagnosis Routine general medical examination at health care facility- Primary Routine general medical examination at a health care facility Benign essential hypertension Essential hypertension, benign Abnormal glucose tolerance test Impaired glucose tolerance test Medicare annual wellness visit, subsequent Hyperlipidemia, unspecified hyperlipidemia type Acute cough Routine general medical examination at health care facility- Primary Routine general medical examination at a health care facility Abnormal glucose tolerance test Impaired glucose tolerance test Benign essential hypertension Essential hypertension, benign Medicare annual wellness visit, subsequent Hyperlipidemia, unspecified hyperlipidemia type Impaired glucose tolerance Impaired glucose tolerance test Seasonal allergic rhinitis, unspecified trigger Essential hypertension Unspecified essential hypertension Murmur, cardiac Undiagnosed cardiac murmurs Abnormal glucose tolerance test Impaired glucose tolerance test Chronic obstructive pulmonary disease, unspecified (HCC) Simple chronic bronchitis (HCC) Simple chronic bronchitis Type 2 diabetes mellitus with diabetic cataract (HCC) Type II or unspecified type diabetes mellitus with ophthalmic manifestations, not stated as uncontrolled Type 2 diabetes mellitus with other specified complication (HCC) Hyperlipidemia, unspecified Primary pulmonary hypertension (HCC) Primary pulmonary hypertension Seborrheic keratosis- Primary Lentigines Angioma of skin Melanocytic nevus of right lower extremity Melanocytic nevus of left lower extremity Melanocytic nevus of trunk Benign neoplasm of skin of trunk, except scrotum documented in this encounter [facility] Summary Purpose Family History No Family History Records FoundNo Family History Records FoundNo Family History Records FoundNo Family History Records Found Advance Directives No Advanced Directives Records FoundNo Advanced Directives Records FoundNo Advanced Directives Records FoundNo Advanced Directives Records Found Additional Source Comments INFORMATION SOURCE (unrecogn ized section and content) DATE CREATED AUTHOR 01/12/2022 [facility] DATE CREATED AUTHOR AUTHOR'S ORGANIZ ATION 02/26/2022 [facility] DATE CREATED AUTHOR AUTHOR'S ORGANIZ ATION 04/02/2024 [facility] DATE CREATED AUTHOR AUTHOR'S ORGANIZ ATION 01/11/2025 [facility] Care Teams (unrecognized sec tion and content) [employer] T[employer] Helper Relationship Specialty Start Date End Date Luba Younger MD [address] [address] PCP - ACO Reach 10/09/22 Luba Younger MD [address] [facility] [address] [place] [address] PCP - General Family Medicine 11/24/22 [employer]per Relationship Specialty Start Date End Date Luba Younger MD [address] [address] PCP - ACO Reach 10/09/22 Luba Younger MD [address] [address] PCP - General Family Medicine 11/24/22 [employer] Tender Helper Relationship Specialty Start Date End Date Luba Younger MD [address] [facility] [address] [place] [address] PCP - ACO Reach 10/09/22 Luba Younger MD [address] [facility] [address] [place] [address] PCP - General Family Medicine 11/24/22 [employer] Tender Helper Relationship Specialty Start Date End Date Luba Younger MD [address] [facility] [address] [place] [address] PCP - ACO Reach 10/09/22 Luba Younger MD [address] [facility] [address] [place] [address] PCP - General Family Medicine 11/24/22 [employer]ola Tender Helper Relationship Specialty Start Date End Date Luba Younger MD [address] [facility] [address] [place] [address] PCP - ACO Reach 10/09/22 Luba Younger MD [address] [facility] [address] [place] [address] PCP - General Family Medicine 11/24/22 Cupola Tender Helper Relationship Specialty Start Date End Date Luba Younger MD [address] [facility] [address] [place] [address] PCP - ACO Reach 10/09/22 Luba Younger MD [address] [facility] [address] [place] [address] PCP - General Family Medicine 11/24/22 [employer] T[employer] Helper Relationship Specialty Start Date End Date Luba Younger MD [address] [facility] [address] [place] [address] PCP - ACO Reach 10/09/22 Luba Younger MD [address] [facility] [address] [place] [address] PCP - General Family Medicine 11/24/22 [employer]ola Tender Helper Relationship Specialty Start Date End Date Luba Younger MD [address] [facility] [address] [place] [address] PCP - ACO Reach 10/09/22 Luba Younger MD [address] [facility] [address] [place] [address] PCP - General Family Medicine 11/24/22 [employer]ola Tender Helper Relationship Specialty Start Date End Date Luba Younger MD [address] [facility] [address] [place] [address] PCP - ACO Reach 10/09/22 Luba Younger MD [address] [facility] [address] [place] [address] PCP - General Family Medicine 11/24/22 Reason for Visit (unrecogniz ed section and content) Reason Comments Med Refill Reason Comments Medicare Annual Wellness Visit Subsequen t Reason Comments Skin Check Reason Comments impaired glucose Last A1c was 6.9 Hypertension FOR RECORDS PERTAINING TO PATIENTS WHO ARE [...] BE BASED ON THE PRIMARY CLINICAL RECORDS. [facility]. provides no warranty or guarantee of the accuracy or completeness of information in this document.
--- NOTE | 2025-03-03 10:24 | MM_ITS ---
Patient Name: VERONICA COBB MR#: [id number] : 1950 Exam Date: 03/03/2025 Ordering Doctor: DR MIRELLA YOUNGER M.D. RADIOLOGY REPORT PROCEDURE: MM TOMOSYNTHESIS SCREENING BI COMPARISON: MM TOMOSYNTHESIS SCREENING BI, 02/12/2024. MM TOMOSYNTHESIS SCREENING BI, 02/09/2023. MG MAMM SCREEN 3D DARRYL CAD, 02/07/2022. MG MAMM DARRYL SCRN W CAD DIG, 04/20/2014. INDICATIONS: Screening Calculator Name NCI Breast Cancer Risk Assessment Tool 5 Year Breast Cancer Risk 1.40% Lifetime Breast Cancer Risk 2.70% Personal Breast Cancer No Personal Ovarian Cancer No Treatments None Family Cancers Sister with uterine cancer at age 28. LOCATION: [facility] BREAST COMPOSITION: The breasts are heterogeneously dense, which may obscure small masses. FINDINGS: RIGHT BREAST: No significant suspicious finding. Benign-appearing calcifications are present. LEFT BREAST: No significant suspicious finding. Benign-appearing calcifications are present. DIAGNOSTIC CATEGORY 2--BENIGN FINDING: RECOMMENDATIONS: ROUTINE MAMMOGRAM AND CLINICAL EVALUATION IN 12 MONTHS. Dictated by: Jairo Underwood MD on 03/03/2025 at 13:11 Approved by: Jairo Underwood MD on 03/03/2025 at 13:20
== END 2025-03-03 09:55 | disposition home or self-care (01) ==
LOC: MAMMO 09:54
PROVIDERS: PCP Family Medicine; Visit Provider Family Medicine
DX: Z12.31 Encounter for screening mammogram for malignant neoplasm of breast (principal); Z80.8 Family history of malignant neoplasm of other organs or systems
CPT/HCPCS: 77063; 77067